=== PATIENT | female | born 1980 | race Caucasian/White ===

== ENCOUNTER 2016-02-26 12:23 | Emergency (ER) | payer SELFPAY ==
[2016-02-26] MEDS ORDERED: FAMOTIDINE 20 MG TABLET PO ONE (13:10)
[2016-02-26] MEDS ORDERED: PREDNISONE 20 MG TABLET PO ONE (13:10)
--- NOTE | 2016-02-26 13:12 | ER Document Report ---
ED Medical Screen (RME) - General Chief Complaint: Allergic Reaction Stated Complaint: POSSIBLE ALLERGIC REACTION Mode of Arrival: Ambulatory Information source: Patient Notes: Patient states that she has been taking Lamictal 50 mg twice a day for the past 2 weeks. Patient states today she instead took 100 mg once a day. Patient states she took this pill around 1050 and then shortly thereafter started to develop itching and hives. Patient does report taking 2 Benadryl tablets at 11 AM. Patient states initially her symptoms were worse, but they seemed to stabilize now. TRAVEL OUTSIDE OF THE [place] IN LAST 30 DAYS: No - Related Data Allergies/Adverse Reactions: morphine [Morphine] Adverse Reaction (Verified 11/14/12 17:57) memory loss Past Medical History - Past Medical History Cardiac Medical History: Reports: Hx Hypertension Endocrine Medical History: Reports: Hx Diabetes Mellitus Type 1, Hx Diabetes Mellitus Type 2 GI Medical History: Reports: Hx Gastroesophageal Reflux Disease Psychiatric Medical History: Reports: Hx Bipolar Disorder, Hx Depression Past Surgical History: Reports: Hx Cholecystectomy, Hx Tonsillectomy, Hx Tubal Ligation - Immunizations Hx Diphtheria, Pertussis, Tetanus Vaccination: Yes Physical Exam - Vital signs Vitals: Temp Pulse Resp BP Pulse Ox 98.1 F 124 H 20 119/83 96 02/26/16 12:58 02/26/16 12:58 02/26/16 12:58 02/26/16 12:58 02/26/16 12:58 - General General appearance: Appears well, Alert Notes: No angioedema, respirations clear bilaterally, patient mildly tachycardic 110 heart rate Course - Vital Signs Vital signs: Temp Pulse Resp BP Pulse Ox 98.1 F 124 H 20 119/83 96 02/26/16 12:58 02/26/16 12:58 02/26/16 12:58 02/26/16 12:58 02/26/16 12:58
[2016-02-26] MEDS ORDERED: HYDROCODONE/ACETAMINOPHEN 5-325 MG TABLET PO ONE (16:31)
[2016-02-26] MEDS ORDERED: METFORMIN HCL 500 MG TABLET PO ONE (17:52)
--- NOTE | 2016-02-26 19:02 | ER Document Report ---
ED General - General Chief Complaint: Allergic Reaction Stated Complaint: POSSIBLE ALLERGIC REACTION Mode of Arrival: Ambulatory Notes: She is presents to the emergency department with complaints of hives to her upper thighs after taking an increasing her Lamictal. She reports she's been taking 50 mg of Lamictal twice a day for 2 weeks. Today she took 100 mg of lamictal and noticed hives. She took 50 mg of Benadryl and was given steroids here. The hives are now gone. She denied shortness of breath or trouble breathing. She also reports she's had a sore throat for over a week with a cough. She denies fever vomiting diarrhea. She complains of left palm pain from itching. No hives noted or rash noted to her soles of her feet or palms. TRAVEL OUTSIDE OF THE [place] IN LAST 30 DAYS: No - HPI Onset: Other Onset/Duration: Sudden Quality of pain: Achy Severity: Moderate Pain Level: 3 Associated symptoms: Nonproductive cough, Sore throat Exacerbated by: Denies Relieved by: Denies Similar symptoms previously: Yes Recently seen / treated by doctor: No - Related Data Allergies/Adverse Reactions: morphine [Morphine] Adverse Reaction (Verified 11/14/12 17:57) memory loss Past Medical History - General Information source: Patient, Parent - Social History Smoking Status: Former Smoker - / Cigarette use (# per day): No Chew tobacco use (# tins/day): No Frequency of alcohol use: None Drug Abuse: None Lives with: Family Family History: Reviewed & Not Pertinent Patient has suicidal ideation: No Patient has homicidal ideation: No - Past Medical History Cardiac Medical History: Reports: Hx Hypertension Endocrine Medical History: Reports: Hx Diabetes Mellitus Type 2 GI Medical History: Reports: Hx Gastroesophageal Reflux Disease Psychiatric Medical History: Reports: Hx Bipolar Disorder, Hx Depression Past Surgical History: Reports: Hx Cholecystectomy, Hx Tonsillectomy, Hx Tubal Ligation - Immunizations Hx Diphtheria, Pertussis, Tetanus Vaccination: Yes Review of Systems - Review of Systems Notes: Review HPI for review of systems., All other systems negative Physical Exam - Vital signs Vitals: Temp Pulse Resp BP Pulse Ox 98.1 F 124 H 20 119/83 96 02/26/16 12:58 02/26/16 12:58 02/26/16 12:58 02/26/16 12:58 02/26/16 12:58 - Notes Notes: PHYSICAL EXAMINATION: GENERAL: Well-appearing and in no acute distress HEAD: Atraumatic, normocephalic. EYES: Pupils equal round and reactive to light, extraocular movements intact, sclera anicteric, conjunctiva are normal. ENT: nares patent, oropharynx clear without exudates. hoarse voice, Moist mucous membranes. good airway NECK: Normal range of motion, supple without lymphadenopathy LUNGS: CTAB and equal. No wheezes rales or rhonchi. HEART:Tachy and rhythm without murmurs ABDOMEN: Soft, no tenderness. No guarding, no rebound EXTREMITIES: Normal range of motion, no pitting edema. No cyanosis. NEUROLOGICAL: Cranial nerves grossly intact. Normal sensory/motor exams. PSYCH: Normal mood, normal affect. SKIN: Warm, Dry, normal turgor, faded irregular erythema to upper thighs Course - Vital Signs Vital signs: Temp Pulse Resp BP Pulse Ox 98.1 F 124 H 23 H 118/70 93 02/26/16 12:58 02/26/16 12:58 02/26/16 18:00 02/26/16 17:01 02/26/16 18:00 - Laboratory Laboratory results interpreted by me: 02/26/16 17:49 POC Glucose 135 H Discharge - Discharge Clinical Impression: Cough, Sore throat Allergic reaction Qualifiers: Encounter type: subsequent encounter Qualified Code(s): T78.40XD - Allergy, unspecified, subsequent encounter Condition: Stable Disposition: HOME, SELF-CARE Instructions: Acute Allergic Reaction ([facility]), Sore Throat ([facility]) Additional Instructions: *You have been evaluated for possible allergic reaction, cough, sore throat *Throat cultures pending you will be contacted should she need antibiotics *Increase fluid intake *Take only 50 mg of lamictal [facility] to discuss reaction of Hives to increase of lamictal *Monitor skin for return of hives *Take Benadryl as indicated *Take your tessalon perrles as prescribed for cough *Monitor your temperature, take Tylenol as indicated *Warm salt water gargles thrroat lozenges for your sore throat *Follow up with your primary care provider within one week for recheck of cold symptoms *Return to ED for worsening condition, changes, needs Referrals: [facility] [Primary Care Provider] - Follow up in 3-5 days
[2016-02-26 19:26] VITALS: BP 134/92
== END 2016-02-26 19:26 | disposition home or self-care (01) ==
LOC: ER 12:23
DX: J02.9 Acute pharyngitis, unspecified (principal); R05 Cough; T78.40XD Allergy, unspecified, subsequent encounter; I10 Essential (primary) hypertension; E11.9 Type 2 diabetes mellitus without complications; K21.9 Gastro-esophageal reflux disease without esophagitis; Z90.49 Acquired absence of other specified parts of digestive tract; Z98.51 Tubal ligation status; Z87.891 Personal history of nicotine dependence; Z88.6 Allergy status to analgesic agent
CPT/HCPCS: 99283; 87070; 87880; 82962; 71020; J7512

== ENCOUNTER → 2016-03-16 | Outpatient (CLI) | payer OTHER | LOC: OD 07:11 | DX: E11.9 Type 2 diabetes mellitus without complications (principal) | CPT/HCPCS: 36415; 83036 ==

== ENCOUNTER → 2016-04-03 | Outpatient (CLI) | payer OTHER | LOC: OD 07:41 | DX: M16.0 Bilateral primary osteoarthritis of hip (principal) | CPT/HCPCS: 73522 ==

== ENCOUNTER → 2016-06-25 | Outpatient (CLI) | payer OTHER | LOC: CCC 07:04 | DX: E11.9 Type 2 diabetes mellitus without complications (principal) | CPT/HCPCS: 36415; 83036 ==

== ENCOUNTER 2016-07-02 13:09 | Observation (INO) | payer SELFPAY ==
[2016-07-02] MEDS ORDERED: NORMAL SALINE 1000 ML 1,000 ML IV ONE (13:36)
--- NOTE | 2016-07-02 13:39 | ER Document Report ---
ED Medical Screen (RME) - General Chief Complaint: Syncope Stated Complaint: POSSIBLE SYNCOPE TRAVEL OUTSIDE OF THE [place] IN LAST 30 DAYS: No - HPI Notes: 07/02/16 13:39 Patient with multiple syncopal episodes since May 30 6 episodes a day. Mother states patient more likely has narcolepsy or cataplexy patient is seen by neurology had a head CT done last Saturday. 07/02/16 13:39 Denies any new symptoms - Related Data Allergies/Adverse Reactions: morphine [Morphine] Adverse Reaction (Verified 07/02/16 13:12) memory loss Past Medical History - Past Medical History Cardiac Medical History: Reports: Hx Hypertension Endocrine Medical History: Reports: Hx Diabetes Mellitus Type 1, Hx Diabetes Mellitus Type 2 Renal/ Medical History: Denies: Hx Peritoneal Dialysis GI Medical History: Reports: Hx Gastroesophageal Reflux Disease Psychiatric Medical History: Reports: Hx Bipolar Disorder, Hx Depression Past Surgical History: Reports: Hx Cholecystectomy, Hx Tonsillectomy, Hx Tubal Ligation - Immunizations Hx Diphtheria, Pertussis, Tetanus Vaccination: Yes Review of Systems - Review of Systems Constitutional: Other - Syncope Physical Exam - Vital signs Vitals: Temp Pulse Resp BP Pulse Ox 98.9 F 106 H 18 138/88 H 98 07/02/16 13:12 07/02/16 13:12 07/02/16 13:12 07/02/16 13:12 07/02/16 13:12 - Cardiovascular Rhythm: Regular Heart sounds: Normal auscultation Course - Re-evaluation Re-evalutation: 07/02/16 13:39 I have greeted and performed a rapid initial assessment of this patient. A comprehensive ED assessment and evaluation of the patient, analysis of test results and completion of the medical decision making process will be conducted by additional ED providers. - Vital Signs Vital signs: Temp Pulse Resp BP Pulse Ox 98.9 F 106 H 18 138/88 H 98 07/02/16 13:12 07/02/16 13:12 07/02/16 13:12 07/02/16 13:12 07/02/16 13:12
[2016-07-02 14:14] LABS: APPEARANCE,URINE CLEAR; BILIRUBIN,URINE NEGATIVE (NEGATIVE); GLUCOSE, URINE NEGATIVE (NEGATIVE); KETONES,URINE NEGATIVE (NEGATIVE); LEUKOCYTE ESTERASE,URINE TRACE (NEGATIVE); NITRITE,URINE NEGATIVE (NEGATIVE); PROTEIN,URINE NEGATIVE (NEGATIVE); URINE SPECIFIC GRAVITY 1.011; UROBILINOGEN,URINE NEGATIVE mg/dL (<2.0)
[2016-07-02 14:17] LABS: ABSOLUTE BASOPHILS # (AUTO) 0.1 10^3/uL (0.0-0.2); ABSOLUTE EOSINOPHILS # (AUTO) 0.5 10^3/uL (0.0-0.6); ABSOLUTE LYMPHOCYTES (AUTO) 4.2 10^3/uL (0.5-4.7); ABSOLUTE MONOCYTES (AUTO) 0.7 10^3/uL (0.1-1.4); ABSOLUTE NEUT (AUTO) 5.5 10^3/uL (1.7-8.2); BASOPHILS % (AUTO) 0.8 % (0-2); EOSINOPHILS % (AUTO) 4.8 % (0-6); HEMOGLOBIN 13.6 g/dL (12.0-15.5); HGB HCT DIFFERENCE 1.8; MEAN CORPUSCULAR HEMOGLOBIN 31.5 pg (27.0-33.4); MEAN CORPUSCULAR HGB CONC 34.7 g/dL (32.0-36.0); MEAN CORPUSCULAR VOLUME 91 fl (80-97); MONOCYTES % (AUTO) 6.2 % (3-13); RED BLOOD COUNT 4.31 10^6/uL (3.72-5.28); RED CELL DISTRIBUTION WIDTH 13.2 % (11.5-14.0); SEGMENTED NEUTROPHILS % (AUTO) 50.2 % (42-78)
[2016-07-02 14:28] LABS: URINE BARBITURATES SCREEN NEGATIVE; URINE METHADONE SCREEN NEGATIVE; URINE OPIATES LOW NEGATIVE; URINE PHENCYCLIDINE SCREEN NEGATIVE
[2016-07-02 14:30] LABS: ALANINE AMINOTRANSFERASE 78 U/L (9-52); ALBUMIN 4.5 g/dL (3.5-5.0); ALKALINE PHOSPHATASE 76 U/L (38-126); ANION GAP 12 (5-19); ASPARTATE AMINO TRANSFERASE 76 U/L (14-36); BILIRUBIN,DIRECT 0.4 mg/dL (0.0-0.4); BILIRUBIN,TOTAL 0.6 mg/dL (0.2-1.3); BLOOD UREA NITROGEN 16 mg/dL (7-20); CALCIUM 10.3 mg/dL (8.4-10.2); CARBON DIOXIDE 24 mmol/L (22-30); CHLORIDE 102 mmol/L (98-107); CREATINE KINASE 92 U/L (30-135); CREATININE RESULT 0.93 mg/dL (0.52-1.25); GLUCOSE 118 mg/dL (75-110); LIPASE 91.5 U/L (23-300); POTASSIUM 4.2 mmol/L (3.6-5.0); SODIUM 138.4 mmol/L (137-145); TOTAL PROTEIN 7.9 g/dL (6.3-8.2)
--- NOTE | 2016-07-02 14:40 | ER Document Report ---
ED General - General Chief Complaint: Syncope Stated Complaint: POSSIBLE SYNCOPE Time seen by provider: 14:38 Mode of Arrival: Ambulatory Information source: Patient Notes: This is a 35-year-old female with a history of bipolar affective disorder, diabetes, hypertension who presents to the emergency room with episodic syncopal episodes. Patient states that they are not associated with chest pain or shortness of breath or abdominal pain and they occur at any time and the recovery period is relatively quick. The whole episode lasts a few minutes. Patient's parents reports that this is occurred while the patient is been in a car so she no longer drives. The patient did have a witnessed syncopal episode in the emergency room during orthostatic vital signs. She did not sustain any injuries (I was there for the fall). There was no tonic-clonic activity or incontinence or tongue biting. TRAVEL OUTSIDE OF THE [place] IN LAST 30 DAYS: No - HPI Onset: Other - Several episodes over the last month Onset/Duration: Sudden Quality of pain: No pain Severity: None Pain Level: Denies Associated symptoms: None Exacerbated by: Denies Relieved by: Denies Similar symptoms previously: Yes Recently seen / treated by doctor: Yes - Related Data Allergies/Adverse Reactions: morphine [Morphine] Adverse Reaction (Verified 07/02/16 13:12) memory loss Past Medical History - General Information source: Patient - Social History Smoking Status: Never Smoker Cigarette use (# per day): No Chew tobacco use (# tins/day): No Frequency of alcohol use: None Drug Abuse: None Lives with: Family Family History: Reviewed & Not Pertinent Patient has suicidal ideation: No Patient has homicidal ideation: No - Past Medical History Cardiac Medical History: Reports: Hx Hypertension Endocrine Medical History: Reports: Hx Diabetes Mellitus Type 1, Hx Diabetes Mellitus Type 2 Renal/ Medical History: Denies: Hx Peritoneal Dialysis GI Medical History: Reports: Hx Gastroesophageal Reflux Disease Psychiatric Medical History: Reports: Hx Bipolar Disorder, Hx Depression Past Surgical History: Reports: Hx Cholecystectomy, Hx Tonsillectomy, Hx Tubal Ligation - Immunizations Hx Diphtheria, Pertussis, Tetanus Vaccination: Yes Review of Systems - Review of Systems Constitutional: denies: Chills, Fever EENT: No symptoms reported Cardiovascular: See HPI Respiratory: No symptoms reported Gastrointestinal: No symptoms reported Genitourinary: No symptoms reported Female Genitourinary: No symptoms reported Musculoskeletal: No symptoms reported Skin: No symptoms reported Hematologic/Lymphatic: No symptoms reported Neurological/Psychological: See HPI Physical Exam - Vital signs Vitals: Temp Pulse Resp BP Pulse Ox 98.9 F 106 H 18 138/88 H 98 07/02/16 13:12 07/02/16 13:12 07/02/16 13:12 07/02/16 13:12 07/02/16 13:12 Notes: Physical exam: GENERAL: 35-year-old female, alert and oriented 3, no acute distress HEAD: Atraumatic, normocephalic. EYES: Pupils equal round and reactive to light, extraocular movements intact, sclera anicteric, conjunctiva are normal. ENT: TMs normal, nares patent, oropharynx clear without exudates. Moist mucous membranes. NECK: Normal range of motion, supple without lymphadenopathy or JVD. LUNGS: Breath sounds clear to auscultation bilaterally and equal. No wheezes rales or rhonchi. HEART: Regular rate and rhythm without murmurs, rubs or gallops. ABDOMEN: Soft, normoactive bowel sounds. No tenderness to palpation. No guarding, no rebound. No masses appreciated. EXTREMITIES: Normal range of motion, no pitting or edema. No clubbing or cyanosis. NEUROLOGICAL: Cranial nerves II through XII grossly intact. Normal speech, normal gait. PSYCH: Normal mood, normal affect. SKIN: Warm, Dry, normal turgor, no rashes or lesions noted. Course - Vital Signs Vital signs: Temp Pulse Resp BP Pulse Ox 98.9 F 96 18 128/82 H 99 07/02/16 13:12 07/02/16 14:05 07/02/16 16:02 07/02/16 16:02 07/02/16 16:02 - Laboratory Result Diagrams: 07/02/16 13:45 07/02/16 13:45 Laboratory results interpreted by me: 07/02/16 07/02/16 07/02/16 13:45 13:45 13:45 WBC 11.0 H Glucose 118 H Calcium 10.3 H AST 76 H ALT 78 H Ur Leukocyte Esterase TRACE H Urine Ascorbic Acid 40 H - Diagnostic Test Radiology reviewed: Image reviewed, Reports reviewed - CTA shows no pulmonary emboli Discharge - Discharge Clinical Impression: syncope Condition: Stable Disposition: ADMITTED OBSERVATION Admitting Provider: Hospitalist Unit Admitted: Telemetry
[2016-07-02] MEDS ORDERED: NORMAL SALINE 1000 ML 1,000 ML IV PRN (15:22)
[2016-07-02] MEDS ORDERED: ALBUTEROL SULFATE 0.083% NEB 2.5 MG/3 ML AMPUL NEB PRN (17:22)
[2016-07-02] MEDS ORDERED: ACETAMINOPHEN 325 MG TABLET PO PRN (17:22)
[2016-07-02] MEDS ORDERED: DEXTROSE 40% GEL 15 GM TUBE PO PRN ×2 (17:30)
[2016-07-02] MEDS ORDERED: INSULIN LISPRO 100 UNIT/ML 3 ML VIAL SUBCUT PRN (17:30)
[2016-07-02] MEDS ORDERED: GLUCAGON,HUMAN RECOMB 1 MG INJ IM PRN (17:30)
[2016-07-02] MEDS ORDERED: DEXTROSE 50%-WATER 25 GM/50 ML DISP.SYRIN IV PRN ×2 (17:30)
--- NOTE | 2016-07-02 17:59 | PDOC H&P ---
History of Present Illness Admission Date/PCP: 07/02/16 16:51 [facility] Patient complains of: Blackout spells History of Present Illness: MAURY OCHOA is a 35 year old female reports that May 26 she began to have blacking out spells. These occur at random and have no provoking incidents. She feels fine and then will become unconscious and slumped to the floor. Patient has seen a neurologist Dr. Martínez at [facility] and she is scheduled for a sleep study to evaluate for possible narcolepsy and cataplexy in August. The patient denies any palpitations. Denies any chest pain or shortness of breath. She denies any dizziness when she stands up weekly. The patient does not have any tonic-clonic movements. The nursing staff was checking orthostatics in the emergency room and she had an episode. This was witnessed by the emergency physician and he reports that she was easily arousable and had no postictal type symptoms. There was no tonic-clonic movements. The patient does have bipolar disorder and is on antipsychotics. The patient's relates that she does have what sounds like restless leg syndrome and also does have episodes of sleepwalking. The patient is no longer driving because of these episodes. The patient has no family history of narcolepsy. She denies any visual or auditory hallucinations. Past Medical History Cardiac Medical History: Reports: Hypertension Pulmonary Medical History: Reports: None EENT Medical History: Reports: None Neurological Medical History: Reports: Other - Currently being worked up for possible narcolepsy Endocrine Medical History: Reports: Diabetes Mellitus Type 2 Renal/ Medical History: Reports: None Malignancy Medical History: Reports: None GI Medical History: Reports: Gastroesophageal Reflux Disease Musculoskeltal Medical History: Reports: None Psychiatric Medical History: Reports: Bipolar Disorder, Depression Traumatic Medical History: Reports: None Hematology: Reports: None Infectious Medical History: Reports: None Past Surgical History Past Surgical History: Reports: Cholecystectomy, Tonsillectomy, Tubal Ligation Social History Information Source: Patient Lives with: Family Smoking Status: Never Smoker Frequency of Alcohol Use: None Hx Recreational Drug Use: No Drugs: None Hx Prescription Drug Abuse: No - Advance Directive Resuscitation Status: Full Code Surrogate healthcare decision maker:: Family History Family History: Mother alive and has heart disease. Father is alive but health history unknown. Parental Family History Reviewed: Yes Children Family History Reviewed: No Sibling(s) Family History Reviewed.: No Medication/Allergy Home Medications: Acetaminophen/Diphenhydramine [Tylenol Pm Ex-Strength Caplet] 2 tab PO QPM 07/02 Benztropine Mesylate [Benztropine Mesylate 2 mg Tablet] 4 mg PO BID 07/02/16 Citalopram Hydrobromide [Celexa] 40 mg PO QAM 07/02/16 Gluc [place]/Chondro Campoverde A/Vit C/Mn [Glucosamine 1,500 Complex Cap] 2 each PO BID 10/11 Haloperidol 10 mg PO QHS 07/02/16 Iron 65 mg PO QHS 07/02/16 Lamotrigine 150 mg PO QAM 07/02/16 Lisinopril 5 mg PO QAM 07/02/16 Loratadine [Claritin 10 mg Tablet] 10 mg PO DAILY 07/02/16 Melatonin 10 mg PO QHS 07/02/16 Metformin HCl 1,000 mg PO BID 07/02/16 Multivitamin [Daily Multiple Vitamin] 1 each PO QAM 07/02/16 [place]-3/Dha/Epa/Fish Oil [Fish Oil 1,000 mg Softgel] 1 each PO BID 07/02/16 Omeprazole 20 mg PO QAM 07/02/16 Power C Vitamins 2 tab PO QAM 07/02/16 Allergies/Adverse Reactions: morphine [Morphine] Adverse Reaction (Verified 07/02/16 13:12) memory loss Review of Systems Constitutional: ABSENT: chills, fever(s), headache(s), weight gain, weight loss Eyes: ABSENT: visual disturbances Ears: ABSENT: hearing changes Cardiovascular: ABSENT: chest pain, dyspnea on exertion, edema, orthropnea, palpitations Respiratory: ABSENT: cough, hemoptysis Gastrointestinal: ABSENT: abdominal pain, constipation, diarrhea, hematemesis, hematochezia, nausea, vomiting Genitourinary: ABSENT: dysuria, hematuria Musculoskeletal: ABSENT: joint swelling Integumentary: ABSENT: rash, wounds Neurological: PRESENT: as per HPI Psychiatric: ABSENT: anxiety, depression Endocrine: ABSENT: cold intolerance, heat intolerance, polydipsia, polyuria Hematologic/Lymphatic: ABSENT: easy bleeding, easy bruising Physical Exam Vital Signs: Temp Pulse Resp BP Pulse Ox 98.9 F 96 18 135/90 H 98 07/02/16 13:12 07/02/16 14:05 07/02/16 17:02 07/02/16 17:02 07/02/16 17:02 General appearance: PRESENT: no acute distress, obese Head exam: PRESENT: atraumatic, normocephalic Eye exam: PRESENT: conjunctiva pink, EOMI, PERRLA. ABSENT: scleral icterus Ear exam: PRESENT: normal external ear exam Mouth exam: PRESENT: moist, tongue midline Neck exam: ABSENT: carotid bruit, JVD, lymphadenopathy, thyromegaly Respiratory exam: PRESENT: clear to auscultation sundeep. ABSENT: rales, rhonchi, wheezes Cardiovascular exam: PRESENT: RRR. ABSENT: diastolic murmur, rubs, systolic murmur Pulses: PRESENT: normal dorsalis pedis pul Vascular exam: PRESENT: normal capillary refill GI/Abdominal exam: PRESENT: normal bowel sounds, soft. ABSENT: distended, guarding, mass, organolmegaly, rebound, tenderness Rectal exam: PRESENT: deferred Extremities exam: ABSENT: calf tenderness, clubbing, pedal edema Neurological exam: PRESENT: alert, awake, oriented to person, oriented to place , oriented to time, oriented to situation, CN II-XII grossly intact. ABSENT: motor sensory deficit Psychiatric exam: PRESENT: appropriate affect, normal mood Skin exam: PRESENT: dry, intact, warm. ABSENT: cyanosis, rash Results Impressions: Chest/Abdomen CTA 07/02/16 14:38 IMPRESSION: No CT angio evidence of thoracic aortic dissection or acute pulmonary emboli. No Focal pulmonary findings Assessment & Plan - Diagnosis (1) Syncope Is this a current diagnosis for this admission?: YesPlan: Etiology of the syncope is not clear. She is currently undergoing workup by Dr. Martínez of neurology. She has a sleep study scheduled for August. The patient does not have orthostatic hypotension. She does not have any type of tonic-clonic movements which makes the possibility of seizures highly unlikely. We will monitor overnight to make certain she is not having any cardiac arrhythmias and with for any further workup to her neurologist and given the symptomology most likely represents narcolepsy with cataplexy. (2) Hypertension Is this a current diagnosis for this admission?: YesPlan: Continue with lisinopril (3) Diabetes mellitus Is this a current diagnosis for this admission?: YesPlan: We'll cover with sliding scale insulin. (4) Gastroesophageal reflux disease Is this a current diagnosis for this admission?: Yes (5) Bipolar disorder Is this a current diagnosis for this admission?: YesPlan: Continue with the Haldol and Cogentin. She also is on Celexa. (6) Depression Is this a current diagnosis for this admission?: YesPlan: Continue with Celexa - Time Time Spent: 50 to 70 Minutes - Inpatient Certification Medical Necessity: Need Close Monitoring Due to Risk of Patient Decompensation - Plan Summary Plan Summary: Patient will be monitored on telemetry and if her rhythm is unremarkable discharge on the morning.
[2016-07-02] MEDS ORDERED: [UNRECOGNIZED DRUG - OTHER] PO SCH (18:00)
[2016-07-02] MEDS ORDERED: BENZTROPINE MESYLATE PO SCH (18:00)
[2016-07-02] MEDS ORDERED: (PENDING PHARMACY ID) (Omega-3/Dha/Epa/Fish Oil [Fish Oil 1,000 Mg Softgel] 1 EACH) PO SCH (18:00)
[2016-07-02] MEDS: OMEGA-3 ACID ETHYL ESTERS 1 GM CAPSULE PO SCH (18:45)
[2016-07-02] MEDS: BENZTROPINE MESYLATE 1 MG TABLET PO SCH (21:15)
--- NOTE | 2016-07-02 21:36 | EKG REPORT ---
SEVERITY:- NORMAL ECG - SINUS RHYTHM : Confirmed by: Libra Nash 02-Jul-2016 21:35:30
[2016-07-02] MEDS ORDERED: FERROUS SULFATE 325 MG TABLET PO SCH (22:00)
[2016-07-02] MEDS ORDERED: (PENDING PHARMACY ID) (Iron [Iron] 65 MG) PO SCH (22:00)
[2016-07-02] MEDS ORDERED: (PENDING PHARMACY ID) (Melatonin [Melatonin] 10 MG) PO SCH (22:00)
[2016-07-02] MEDS ORDERED: HALOPERIDOL 5 MG TABLET PO SCH (22:00)
[2016-07-03] MEDS ORDERED: CITALOPRAM HYDROBROMIDE 20 MG TABLET PO SCH (08:00)
[2016-07-03] MEDS ORDERED: MULTIVITAMIN TABLET PO SCH (08:00)
[2016-07-03] MEDS ORDERED: LISINOPRIL 5 MG TABLET PO SCH (08:00)
[2016-07-03] MEDS ORDERED: LAMOTRIGINE 100 MG TABLET PO SCH (08:00)
[2016-07-03] MEDS ORDERED: LAMOTRIGINE 150 MG PO SCH (08:00)
[2016-07-03] MEDS ORDERED: LORATADINE 10 MG TABLET PO SCH (10:00)
[2016-07-03 10:35] VITALS: BP 136/76
[2016-07-03] MEDS: BENZTROPINE MESYLATE 1 MG TABLET PO SCH (11:03)
[2016-07-03] MEDS: OMEGA-3 ACID ETHYL ESTERS 1 GM CAPSULE PO SCH (11:03)
--- NOTE | 2016-07-03 11:30 | PDOC DISCHARGE SUMMARY ---
General - Admit/Disc Date/PCP Admission Date/Primary Care Provider: 07/02/16 16:51 [facility] Discharge Date: 07/03/16 - Discharge Diagnosis (1) Syncope Is this a current diagnosis for this admission?: YesSummary: Unremarkable telemetry overnight. 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 (2) Hypertension Is this a current diagnosis for this admission?: Yes (3) Diabetes mellitus Is this a current diagnosis for this admission?: Yes (4) Gastroesophageal reflux disease Is this a current diagnosis for this admission?: Yes (5) Bipolar disorder Is this a current diagnosis for this admission?: Yes (6) Depression Is this a current diagnosis for this admission?: Yes - Additional Information Resuscitation Status: Full Code Discharge Diet: Regular Discharge Activity: Activity As Tolerated Home Medications: Acetaminophen/Diphenhydramine [Tylenol Pm Ex-Strength Caplet] 2 tab PO QPM 07/02 Benztropine Mesylate [Benztropine Mesylate 2 mg Tablet] 4 mg PO BID 07/02/16 Citalopram Hydrobromide [Celexa] 40 mg PO QAM 07/02/16 Gluc Campoverde/Chondro Campoverde A/Vit C/Mn [Glucosamine 1,500 Complex Cap] 2 each PO BID 10/11 Haloperidol 10 mg PO QHS 07/02/16 Iron 65 mg PO QHS 07/02/16 Lamotrigine 150 mg PO QAM 07/02/16 Lisinopril 5 mg PO QAM 07/02/16 Loratadine [Claritin 10 mg Tablet] 10 mg PO QAM 07/02/16 Melatonin 10 mg PO QHS 07/02/16 Metformin HCl 1,000 mg PO BID 07/02/16 Multivitamin [Daily Multiple Vitamin] 2 each PO QAM 07/02/16 Spickard-3/Dha/Epa/Fish Oil [Fish Oil 1,000 mg Softgel] 3 each PO BID 07/02/16 Omeprazole 20 mg PO QAM 07/02/16 Power C Vitamins 2 tab PO QAM 07/02/16 History of Present Illness History of Present Illness: MAURY OCHOA is a 35 year old female reports that May 26 she began to have blacking out spells. These occur at random and have no provoking incidents. She feels fine and then will become unconscious and slumped to the floor. Patient has seen a neurologist Dr. Martínez at [place] and she is scheduled for a sleep study to evaluate for possible narcolepsy and cataplexy in August. The patient denies any palpitations. Denies any chest pain or shortness of breath. She denies any dizziness when she stands up weekly. The patient does not have any tonic-clonic movements. The nursing staff was checking orthostatics in the emergency room and she had an episode. This was witnessed by the emergency physician and he reports that she was easily arousable and had no postictal type symptoms. There was no tonic-clonic movements. The patient does have bipolar disorder and is on antipsychotics. The patient's relates that she does have what sounds like restless leg syndrome and also does have episodes of sleepwalking. The patient is no longer driving because of these episodes. The patient has no family history of narcolepsy. She denies any visual or auditory hallucinations. Hospital Course Hospital Course: 35-year-old female who is currently being worked up by Dr. Foster of neurology for syncopal episodes. She presented with continued syncopal episodes was admitted for overnight observation of her cardiac telemetry. She had no further episodes of syncope. She had no cardiac arrhythmias. The patient by her description has what sounds like narcolepsy with cataplexy. She has a sleep study scheduled for August. Will defer any further workup to her neurologist Dr. Martínez. No changes were made in her medications. Physical Exam Vital Signs: Temp Pulse Resp BP Pulse Ox 97.5 F 72 18 136/76 H 96 07/03/16 10:34 07/03/16 10:34 07/03/16 10:34 07/03/16 10:34 07/03/16 10:34 Intake & Output 07/02/16 07/03/16 07/04/16 06:59 06:59 06:59 Intake Total 2805 Balance 2805 Weight 111.2 kg General appearance: PRESENT: no acute distress, well-developed, well-nourished Head exam: PRESENT: atraumatic, normocephalic Eye exam: PRESENT: conjunctiva pink, EOMI, PERRLA. ABSENT: scleral icterus Ear exam: PRESENT: normal external ear exam Mouth exam: PRESENT: moist, tongue midline Neck exam: ABSENT: JVD Respiratory exam: PRESENT: clear to auscultation sundeep. ABSENT: rales, rhonchi, wheezes Cardiovascular exam: PRESENT: RRR. ABSENT: diastolic murmur, rubs, systolic murmur GI/Abdominal exam: PRESENT: normal bowel sounds, soft. ABSENT: distended, guarding, mass, organolmegaly, rebound, tenderness Extremities exam: ABSENT: calf tenderness, clubbing, pedal edema Neurological exam: PRESENT: alert, awake, oriented to person, oriented to place , oriented to time, oriented to situation, CN II-XII grossly intact. ABSENT: motor sensory deficit Psychiatric exam: PRESENT: appropriate affect Skin exam: PRESENT: dry, intact, warm. ABSENT: cyanosis, rash Results Impressions: Chest/Abdomen CTA 07/02/16 14:38 IMPRESSION: No CT angio evidence of thoracic aortic dissection or acute pulmonary emboli. No Focal pulmonary findings Qualifiers PATEINT BEING DISCHARGED WITH ANY OF THE FOLLOWING DIAGNOSIS?: No Plan Discharge Plan: Patient is discharged home in stable condition. She will follow up in 2 weeks with her primary care and keep her next scheduled appointment with her neurologist Dr. Martínez. Time Spent: Less than 30 Minutes
== END 2016-07-03 11:13 | disposition home or self-care (01) ==
LOC: ER 13:09 → EH 16:51 → INTOOBSV 17:22 → OBSVTOIN 17:22 → 4N 18:13
PROVIDERS: ADMIT Internal Medicine; ATTEND Internal Medicine
DX: R55 Syncope and collapse (principal); I10 Essential (primary) hypertension; E11.9 Type 2 diabetes mellitus without complications; K21.9 Gastro-esophageal reflux disease without esophagitis; F31.9 Bipolar disorder, unspecified; F51.3 Sleepwalking [somnambulism]; Z79.899 Other long term (current) drug therapy; Z79.84 Long term (current) use of oral hypoglycemic drugs; Z90.49 Acquired absence of other specified parts of digestive tract; Z98.51 Tubal ligation status
CPT/HCPCS: 93005; 99285; 96360; 96361; 36415; 82553; 82962 ×2; 82550; 83690; 84703; 85025; 80053; 81001; 84484; 80307; 71275; 93010; G0378 ×3; J1815; J3490 ×3; J7030

== ENCOUNTER → 2016-07-17 | Outpatient (CLI) | payer OTHER ==
[2016-07-17 08:43] LABS: ALANINE AMINOTRANSFERASE 75 U/L (9-52); ALBUMIN 4.2 g/dL (3.5-5.0); ALKALINE PHOSPHATASE 70 U/L (38-126); ANION GAP 11 (5-19); ASPARTATE AMINO TRANSFERASE 70 U/L (14-36); BILIRUBIN,DIRECT 0.4 mg/dL (0.0-0.4); BILIRUBIN,TOTAL 0.6 mg/dL (0.2-1.3); BLOOD UREA NITROGEN 16 mg/dL (7-20); CALCIUM 9.9 mg/dL (8.4-10.2); CARBON DIOXIDE 26 mmol/L (22-30); CHLORIDE 103 mmol/L (98-107); GLUCOSE 144 mg/dL (75-110); POTASSIUM 4.3 mmol/L (3.6-5.0); SODIUM 139.6 mmol/L (137-145); TOTAL PROTEIN 7.6 g/dL (6.3-8.2)
== END ==
LOC: CCC 07:05
DX: R55 Syncope and collapse (principal); E83.52 Hypercalcemia
CPT/HCPCS: 36415; 80053

== ENCOUNTER → 2016-08-06 | Outpatient (CLI) | payer OTHER ==
[2016-08-06 08:57] LABS: ALANINE AMINOTRANSFERASE 70 U/L (9-52); ALBUMIN 4.3 g/dL (3.5-5.0); ALKALINE PHOSPHATASE 107 U/L (38-126); ANION GAP 12 (5-19); ASPARTATE AMINO TRANSFERASE 60 U/L (14-36); BILIRUBIN,DIRECT 0.3 mg/dL (0.0-0.4); BILIRUBIN,TOTAL 0.4 mg/dL (0.2-1.3); BLOOD UREA NITROGEN 20 mg/dL (7-20); CALCIUM 10.3 mg/dL (8.4-10.2); CARBON DIOXIDE 24 mmol/L (22-30); CHLORIDE 103 mmol/L (98-107); CREATININE RESULT 0.92 mg/dL (0.52-1.25); GLUCOSE 137 mg/dL (75-110); POTASSIUM 4.4 mmol/L (3.6-5.0); SODIUM 139.2 mmol/L (137-145); TOTAL PROTEIN 7.6 g/dL (6.3-8.2)
== END ==
LOC: CCC 07:29
DX: R55 Syncope and collapse (principal); E83.52 Hypercalcemia
CPT/HCPCS: 36415; 80053

== ENCOUNTER → 2016-08-23 | Outpatient (CLI) | payer OTHER ==
--- NOTE | 2016-08-23 12:28 | RADIOLOGY REPORT (SQ) ---
EXAM DESCRIPTION: U/S ABDOMEN COMPLETE W/O DOP COMPLETED DATE/TIME: 08/23/2016 11:50 am REASON FOR STUDY: ABN LFT (R94.5), FATTY (CHANGE OF) LIVER NEC (K76.0) R94.5 ABNORMAL RESULTS OF LI YOANA FUNCTION STUDIES COMPARISON: None. TECHNIQUE: Dynamic and static grayscale images acquired of the abdomen and recorded on PACS. Additio nal selected color Doppler and spectral images recorded. LIMITATIONS: None. FINDINGS: PANCREAS: No masses. Visualized pancreatic duct normal caliber. LIVER: Liver demonstrates increased echogenicity and coarsened echotexture consistent with fatty depo sition. No focal lesions. No hepatomegaly. LIVER VASCULATURE: Normal directional flow of the main portal vein and hepatic veins. GALLBLADDER: Surgically absent. ULTRASOUND-DETECTED ROSA'S SIGN: Negative. INTRAHEPATIC DUCTS AND COMMON DUCT: CBD and intrahepatic ducts normal caliber. No filling defects. INFERIOR VENA CAVA: Normal flow. AORTA: No aneurysm. RIGHT KIDNEY: Normal size. Normal echogenicity. No solid or suspicious masses. No hydronephros is. No calcifications. LEFT KIDNEY: Normal size. Normal echogenicity. No solid or suspicious masses. No hydronephrosi s. No calcifications. SPLEEN: Normal size. No solid masses. PERITONEAL AND PLEURAL SPACES: No ascites or effusions. OTHER: No other significant finding. IMPRESSION: 1. Hepatic steatosis. No focal liver lesions. 2. Prior cholecystectomy. No biliary dilatation. 3. Otherwise unremarkable abdominal ultrasound. TECHNICAL DOCUMENTATION: JOB ID: [id number] [email or web address]- All Rights Reserved
== END ==
LOC: RAD 10:07
DX: R94.5 Abnormal results of liver function studies (principal); K76.0 Fatty (change of) liver, not elsewhere classified
CPT/HCPCS: 76700

== ENCOUNTER 2016-08-25 14:45 | Emergency (ER) | payer OTHER ==
--- NOTE | 2016-08-25 15:08 | ER Document Report ---
ED Medical Screen (RME) - General Chief Complaint: Blood in Catheter Stated Complaint: BLOOD IN URINE Time Seen by Provider: 08/25/16 15:05 Notes: Patient says that she was having trouble going to urinate earlier today and then this afternoon noted some blood in her urine. She was fine yesterday. Denies any nausea or vomiting. Denies any fever. PMH: Cholecystectomy, BTL. TRAVEL OUTSIDE OF THE [place] IN LAST 30 DAYS: No - Related Data Allergies/Adverse Reactions: morphine [Morphine] Adverse Reaction (Verified 08/25/16 14:50) memory loss Past Medical History - Past Medical History Cardiac Medical History: Reports: Hx Hypertension Endocrine Medical History: Reports: Hx Diabetes Mellitus Type 1, Hx Diabetes Mellitus Type 2 Renal/ Medical History: Denies: Hx Peritoneal Dialysis GI Medical History: Reports: Hx Gastroesophageal Reflux Disease Psychiatric Medical History: Reports: Hx Bipolar Disorder, Hx Depression Past Surgical History: Reports: Hx Cholecystectomy, Hx Tonsillectomy, Hx Tubal Ligation - Immunizations Hx Diphtheria, Pertussis, Tetanus Vaccination: Yes Physical Exam - Vital signs Vitals: Temp Pulse Resp BP Pulse Ox 98.3 F 95 18 128/74 H 97 08/25/16 14:50 08/25/16 14:50 08/25/16 14:50 08/25/16 14:50 08/25/16 14:50 Course - Vital Signs Vital signs: Temp Pulse Resp BP Pulse Ox 98.3 F 95 18 128/74 H 97 08/25/16 14:50 08/25/16 14:50 08/25/16 14:50 08/25/16 14:50 08/25/16 14:50 - Laboratory Laboratory results interpreted by me: 08/25/16 15:25 Urine Nitrite POSITIVE H Urine Urobilinogen 4.0 H Ur Leukocyte Esterase MODERATE H Urine Ascorbic Acid 40 H
[2016-08-25 15:52] LABS: APPEARANCE,URINE CLOUDY; BILIRUBIN,URINE NEGATIVE (NEGATIVE); GLUCOSE, URINE NEGATIVE (NEGATIVE); KETONES,URINE NEGATIVE (NEGATIVE); LEUKOCYTE ESTERASE,URINE MODERATE (NEGATIVE); NITRITE,URINE POSITIVE (NEGATIVE); PROTEIN,URINE NEGATIVE (NEGATIVE); URINE SPECIFIC GRAVITY 1.006
[2016-08-25] MEDS ORDERED: NITROFURANTOIN MONOHYD/M-CRYST 100 MG CAPSULE PO ONE (16:13)
--- NOTE | 2016-08-25 16:17 | ER Document Report ---
ED GI/ - General Stated Complaint: BLOOD IN URINE Time Seen by Provider: 08/25/16 15:05 Notes: Patient says that she was having trouble going to urinate earlier today and then this afternoon noted some blood in her urine. She was fine yesterday. Denies any nausea or vomiting. Denies any fever. [place] fine yesterday. PMH: Cholecystectomy, BTL TRAVEL OUTSIDE OF THE [place] IN LAST 30 DAYS: No - Related Data Allergies/Adverse Reactions: morphine [Morphine] Adverse Reaction (Verified 08/25/16 14:50) memory loss Past Medical History - Social History Smoking Status: Former Smoker - Stop smoking 2 weeks ago. Family History: Reviewed & Not Pertinent Patient has suicidal ideation: No Patient has homicidal ideation: No - Past Medical History Cardiac Medical History: Reports: Hx Hypertension Endocrine Medical History: Reports: Hx Diabetes Mellitus Type 2 Renal/ Medical History: Denies: Hx Peritoneal Dialysis GI Medical History: Reports: Hx Gastroesophageal Reflux Disease Psychiatric Medical History: Reports: Hx Bipolar Disorder, Hx Depression, Other - Insomnia Past Surgical History: Reports: Hx Cholecystectomy, Hx Tonsillectomy, Hx Tubal Ligation - Immunizations Hx Diphtheria, Pertussis, Tetanus Vaccination: Yes Review of Systems - Review of Systems Notes: REVIEW OF SYSTEMS: CONSTITUTIONAL : Denies fever. EENT: Denies eye, ear, nose or mouth or throat pain or other symptoms. CARDIOVASCULAR: Denies chest pain. RESPIRATORY: Denies cough, chest congestion, or shortness of breath. GASTROINTESTINAL: Denies abdominal pain or nausea, vomiting, or diarrhea. GENITOURINARY: See HPI. MUSCULOSKELETAL: Denies back or neck pain. Denies joint pain or swelling. SKIN: Denies rash or skin lesions. NEUROLOGICAL: Denies LOC or altered mental status. Denies headache. Denies sensory loss or motor deficits. ALL OTHER SYSTEMS REVIEWED AND NEGATIVE. Physical Exam - Vital signs Vitals: Temp Pulse Resp BP Pulse Ox 98.3 F 95 18 128/74 H 97 08/25/16 14:50 08/25/16 14:50 08/25/16 14:50 08/25/16 14:50 08/25/16 14:50 Interpretation: Normal - Notes Notes: PHYSICAL EXAMINATION: GENERAL: Well-appearing, in no acute distress. Vital signs essentially normal. HEAD: Atraumatic, normocephalic. NECK: Normal range of motion, supple. LUNGS: Breath sounds clear and equal bilaterally. HEART: Regular rate and rhythm without murmurs. ABDOMEN: Soft, nontender. No guarding or rebound. No masses felt. BACK: No tenderness throughout entire back. EXTREMITIES: Normal range of motion without pain. NEUROLOGICAL: Normal speech, normal gait. Normal sensory, motor, and reflex exams. Awake, alert, and oriented x3. Cranial nerves normal. PSYCH: Normal mood, normal affect. SKIN: Warm, dry, no rashes. Course - Re-evaluation Re-evalutation: 08/25/16 21:19 Urinalysis definitely looks like a UTI. - Vital Signs Vital signs: Temp Pulse Resp BP Pulse Ox 98.3 F 96 18 126/76 H 99 08/25/16 16:19 08/25/16 16:19 08/25/16 16:19 08/25/16 16:19 08/25/16 16:19 - Laboratory Laboratory results interpreted by me: 08/25/16 15:25 Urine Nitrite POSITIVE H Urine Urobilinogen 4.0 H Ur Leukocyte Esterase MODERATE H Urine Ascorbic Acid 40 H Discharge - Discharge Clinical Impression: UTI (urinary tract infection) Qualifiers: Urinary tract infection type: site unspecified Hematuria presence: with hematuria Qualified Code(s): N39.0 - Urinary tract infection, site not specified Condition: Stable Disposition: HOME, SELF-CARE Additional Instructions: URINARY TRACT INFECTION: Your evaluation indicates that you have a urinary tract infection. This is due to germs growing in the bladder. This is a common problem. This infection usually responds quickly to antibiotics. Your antibiotic should be taken exactly as prescribed. Drink plenty of fluids -- three to four quarts a day. Occasionally, a bladder anesthetic will be prescribed to help stop the feeling of urgency until the antibiotic has a chance to clear the infection. This may cause your urine to be dark orange. Certain urine infections require a culture. If the doctor obtained a culture, the results will be back in two days. You should call to see if a change in treatment is needed. A repeat urinalysis after you finish treatment is often recommended. The physician will let you know if further testing is required. Call the doctor if you develop fever, chills, flank pain, inability to urinate, or blood in the urine. ANTIBIOTIC THERAPY: You have been given an antibiotic prescription. It's important that you take all the medication, unless instructed otherwise by your physician. Failure to complete the entire course can result in relapse of your condition. Common side effects of antibiotics include nausea, intestinal cramping, or diarrhea. Women may develop vaginal yeast infections, and babies can get yeast (thrush) in the mouth following the use of antibiotics. Contact your physician if you develop significant side effects from this medication. Allergy to this antibiotic can result in hives, wheezing, faintness, or itching. If symptoms of allergy occur, stop the medication and call the doctor. NITROFURANTOIN (MACRODANTIN, MACROBID): You have received a prescription for nitrofurantoin (Macrodantin). This antibiotic is used for urinary tract infections. Women who are or nursing should notify the physician before taking this medicine. If you have ever had a problem caused by this medication in the past, be sure the physician is aware of it. Common side effects of this medicine include nausea, vomiting, or decreased appetite. Notify your physician if these side effects become severe. Immediately stop this medicine and call the physician if you develop cough , shortness of breath, chest pain, weakness, jaundice (yellow color of the skin and whites of the eyes), or a skin rash. FOLLOW-UP CARE: If you have been referred to a physician for follow-up care, call the physician s office for an appointment as you were instructed or within the next two days. If you experience worsening or a significant change in your symptoms, notify the physician immediately or return to the Emergency Department at any time for re-evaluation. Drink plenty of fluids. Take the medication until completed and throw away the empty bottle. 3 things to return for: High Fever Pain that is not controlled with Tylenol or Motrin Vomiting and cannot keep medications down. Prescriptions: Nitrofurantoin/Nitrofuran Mac [Macrobid 100 mg Capsule] 1 tab PO BID #10 capsule Referrals: [facility] [Provider Group] - Follow up as needed
[2016-08-25 16:20] VITALS: BP 126/76
== END 2016-08-25 16:25 | disposition home or self-care (01) ==
LOC: ER 14:45
DX: N39.0 Urinary tract infection, site not specified (principal); R31.9 Hematuria, unspecified; I10 Essential (primary) hypertension; E11.9 Type 2 diabetes mellitus without complications; Z88.6 Allergy status to analgesic agent; Z87.891 Personal history of nicotine dependence; Z90.49 Acquired absence of other specified parts of digestive tract; Z98.51 Tubal ligation status
CPT/HCPCS: 99283; 81025; 81001; J8499

== ENCOUNTER → 2016-09-12 | Outpatient (CLI) | payer OTHER ==
[2016-09-13 08:40] LABS: HEPATITIS A AB TOTAL Negative (Negative)
== END ==
LOC: CCC 07:14
DX: R94.5 Abnormal results of liver function studies (principal)
CPT/HCPCS: 36415; 82977; 86317; 86708; 86709; 87340

== ENCOUNTER 2016-09-17 13:40 | Emergency (ER) | payer OTHER ==
[2016-09-17] MEDS ORDERED: IBUPROFEN 800 MG TABLET PO ONE (14:15)
--- NOTE | 2016-09-17 14:16 | ER Document Report ---
HPI - HPI Patient complains to provider of: Twisted left ankle and hit right knee Onset: Just prior to arrival Onset/Duration: Sudden Context: 35-year-old female injured her left ankle and right knee after twisting her left foot and ankle falling off a curb prior to arrival. She came in by ambulance. Tetanus is current. Associated Symptoms: None Exacerbated by: Walking Relieved by: Denies - ROS ROS below otherwise negative: Yes Systems Reviewed and Negative: Yes All other systems reviewed and negative - CARDIOVASCULAR Cardiovascular: DENIES: Chest pain - REPRODUCTIVE Reproductive: DENIES: : Past Medical History - General Information source: Patient - Social History Smoking Status: Former Smoker Frequency of alcohol use: None Drug Abuse: None Lives with: Parents Family History: Reviewed & Not Pertinent - Past Medical History Cardiac Medical History: Reports: Hx Hypertension Endocrine Medical History: Reports: Hx Diabetes Mellitus Type 2 Renal/ Medical History: Denies: Hx Peritoneal Dialysis GI Medical History: Reports: Hx Gastroesophageal Reflux Disease Psychiatric Medical History: Reports: Hx Bipolar Disorder, Hx Depression Past Surgical History: Reports: Hx Cholecystectomy, Hx Tonsillectomy, Hx Tubal Ligation - Immunizations Hx Diphtheria, Pertussis, Tetanus Vaccination: Yes Vertical Provider Document - CONSTITUTIONAL Agree With Documented VS: Yes Exam Limitations: No Limitations - INFECTION CONTROL TRAVEL OUTSIDE OF THE [place] IN LAST 30 DAYS: No - HEENT HEENT: Normocephalic - NECK Neck: Supple - RESPIRATORY O2 Sat by Pulse Oximetry: 95 - MUSCULOSKELETAL/EXTREMETIES Musculoskeletal/Extremeties: MAEW, FROM, Tender, Eccymosis Notes: superficial abrasion, tender lateral left malleolus and proximal foot, 2 + DP, FROM, n/v intact. right anterior knee with superficial abrasion, FROM, patellar tendon intact. - NEURO Level of Consciousness: Alert Motor/Sensory: No Motor Deficit, No Sensory Deficit - DERM Integumentary: Warm, Dry Notes: see above Course - Re-evaluation Re-evalutation: 09/17/16 15:48 X-rays are negative per radiologist. The patient fell in the bathroom on her buttocks and she states that nothing is hurt worse than when she came in. Patient does not want Motrin prescription 09/17/16 16:00 - Vital Signs Vital signs: Temp Pulse Resp BP Pulse Ox 98.6 F 102 H 20 120/79 95 09/17/16 14:10 09/17/16 14:10 09/17/16 14:10 09/17/16 14:10 09/17/16 14:10 Procedures - Immobilization Wrist Time completed: 16:25 Pre-Proc Neuro Vasc Exam: Normal Immobilizer type: Cock-up - bilateral wrists, Other - right ankle posterior splint Performed by: RN Post-Proc Neuro Vasc Exam: Normal Alignment checked and good: Yes Discharge - Discharge Clinical Impression: left ankle and foot sprain Abrasion of right knee Qualifiers: Encounter type: initial encounter Qualified Code(s): S80.211A - Abrasion, right knee, initial encounter Condition: Good Disposition: HOME, SELF-CARE Instructions: Sprained Ankle ([facility]), Use of Crutches ([facility]), Ice & Elevation ([facility] ), Temporary Splint ([facility]), Splint Precautions ([facility]), Abrasions ([facility]), Antibiotic Ointment Protection ([facility]) Additional Instructions: elevate use crutches this week spliht this week copy of negative radiology reports to er any concerns see orthopedic doctor if pain persists Please complete the patient satisfaction survey if you get one, and return it.. If you do not receive a survey, then you can go to the [facility] website, [email or web address] and place your comments about your very good care. Thank you very much. It was a pleasure being your medical provider today. Referrals: TAWANDA SAGASTUME MD [ACTIVE STAFF] - Follow up as needed
--- NOTE | 2016-09-17 15:23 | RADIOLOGY REPORT (SQ) ---
EXAM DESCRIPTION: ANKLE LEFT COMPLETE COMPLETED DATE/TIME: 09/17/2016 3:08 pm REASON FOR STUDY: inversion injury COMPARISON: None. NUMBER OF VIEWS: Three views. TECHNIQUE: AP, lateral, and oblique radiographic images acquired of the left ankle. LIMITATIONS: None. FINDINGS: MINERALIZATION: Normal. BONES: No acute fracture or dislocation. No worrisome bone lesions. JOINTS: No effusions. SOFT TISSUES: No soft tissue swelling. No foreign body. OTHER: No other significant finding. IMPRESSION: NEGATIVE STUDY OF THE LEFT ANKLE. NO RADIOGRAPHIC EVIDENCE OF ACUTE INJURY. TECHNICAL DOCUMENTATION: JOB ID: [id number] [employer]- All Rights Reserved
--- NOTE | 2016-09-17 15:24 | RADIOLOGY REPORT (SQ) ---
EXAM DESCRIPTION: FOOT LEFT COMPLETE COMPLETED DATE/TIME: 09/17/2016 3:08 pm REASON FOR STUDY: inversion injury COMPARISON: 09/11/2013 NUMBER OF VIEWS: Three views. TECHNIQUE: AP, lateral and oblique radiographic images acquired of the left foot. LIMITATIONS: None. FINDINGS: MINERALIZATION: Normal. BONES: No acute fracture or dislocation. No worrisome bone lesions. JOINTS: No effusions. SOFT TISSUES: No soft tissue swelling. No foreign body. OTHER: No other significant finding. IMPRESSION: NEGATIVE STUDY OF THE LEFT FOOT. NO RADIOGRAPHIC EVIDENCE OF ACUTE INJURY. TECHNICAL DOCUMENTATION: JOB ID: [id number] [employer]- All Rights Reserved
[2016-09-17 16:38] VITALS: BP 120/80
== END 2016-09-17 16:40 | disposition home or self-care (01) ==
LOC: ER 13:40
DX: S93.402A Sprain of unspecified ligament of left ankle, initial encounter (principal); S93.602A Unspecified sprain of left foot, initial encounter; S80.211A Abrasion, right knee, initial encounter; W10.1XXA Fall (on)(from) sidewalk curb, initial encounter; I10 Essential (primary) hypertension; E11.9 Type 2 diabetes mellitus without complications; Z87.891 Personal history of nicotine dependence
CPT/HCPCS: 99283

== ENCOUNTER → 2016-09-20 | Outpatient (CLI) | payer OTHER | LOC: CCC 12:40 | DX: E11.8 Type 2 diabetes mellitus with unspecified complications (principal) | CPT/HCPCS: 36415; 83036 ==

== ENCOUNTER → 2016-09-21 | Outpatient (CLI) | payer OTHER | LOC: CCC 14:20 | DX: R94.5 Abnormal results of liver function studies (principal) | CPT/HCPCS: 36415 ==

== ENCOUNTER 2016-10-18 07:09 | Emergency (ER) | payer OTHER ==
[2016-10-18 07:32] VITALS: BP 139/86
[2016-10-18] MEDS ORDERED: LIDOCAINE 5% (700 MG) TRANSDERMAL ADH..PATCH TP ONE (08:24)
--- NOTE | 2016-10-18 09:15 | RADIOLOGY REPORT (SQ) ---
EXAM DESCRIPTION: KNEE RIGHT 3 VIEWS COMPLETED DATE/TIME: 10/18/2016 8:55 am REASON FOR STUDY: knee pain COMPARISON: None. NUMBER OF VIEWS: Three views. TECHNIQUE: AP, lateral, and sunrise patella radiographic images acquired of the right knee. LIMITATIONS: None. FINDINGS: MINERALIZATION: Normal. BONES: No acute fracture or dislocation. No worrisome bone lesions. JOINT: No significant suprapatellar knee joint effusion. There is very mild lateral subluxation of t he patella on the sunrise view. Mild lateral patellofemoral joint space narrowing. Mild medial comp artment joint space narrowing. SOFT TISSUES: No soft tissue swelling. No radio-opaque foreign body. OTHER: No other significant finding. IMPRESSION: No acute fracture. Joint space narrowing in the patellofemoral and medial compartments. TECHNICAL DOCUMENTATION: JOB ID: [id number] [email or web address]- All Rights Reserved
[2016-10-18] MEDS ORDERED: ACETAMINOPHEN 325 MG TABLET PO ONE (10:10)
--- NOTE | 2016-10-18 10:20 | ER Document Report ---
ED General - General Chief Complaint: Knee Injury Stated Complaint: RIGHT KNEE INJURY Time Seen by Provider: 10/18/16 08:16 TRAVEL OUTSIDE OF THE [place] IN LAST 30 DAYS: No - HPI Patient complains to provider of: Right knee pain Notes: Patient coming in for evaluation of right knee pain. Patient has right knee effusion in the medial side states ongoing for the last week worse in the last 2 days denies any other known injury patient denies fever chills nausea vomiting diarrhea - Related Data Allergies/Adverse Reactions: morphine [Morphine] Adverse Reaction (Verified 10/18/16 09:19) memory loss Past Medical History - Social History Smoking Status: Unknown if Ever Smoked Family History: Reviewed & Not Pertinent Patient has suicidal ideation: No Patient has homicidal ideation: No - Past Medical History Cardiac Medical History: Reports: Hx Hypertension Endocrine Medical History: Reports: Hx Diabetes Mellitus Type 1, Hx Diabetes Mellitus Type 2 Renal/ Medical History: Denies: Hx Peritoneal Dialysis GI Medical History: Reports: Hx Gastroesophageal Reflux Disease Psychiatric Medical History: Reports: Hx Bipolar Disorder, Hx Depression Past Surgical History: Reports: Hx Cholecystectomy, Hx Tonsillectomy, Hx Tubal Ligation - Immunizations Hx Diphtheria, Pertussis, Tetanus Vaccination: Yes Review of Systems - Review of Systems Constitutional: No symptoms reported EENT: No symptoms reported Cardiovascular: No symptoms reported Respiratory: No symptoms reported Gastrointestinal: No symptoms reported Genitourinary: No symptoms reported Female Genitourinary: No symptoms reported Musculoskeletal: Other - Right knee pain Skin: No symptoms reported Hematologic/Lymphatic: No symptoms reported Neurological/Psychological: No symptoms reported Physical Exam - Vital signs Vitals: Temp Pulse Resp BP Pulse Ox 97.7 F 84 16 139/86 H 94 10/18/16 07:27 10/18/16 07:27 10/18/16 07:27 10/18/16 07:27 10/18/16 07:27 Interpretation: Normal - General General appearance: Appears well, Alert - HEENT Head: Normocephalic, Atraumatic Eyes: Normal Pupils: PERRL - Respiratory Respiratory status: No respiratory distress Chest status: Nontender Breath sounds: Normal Chest palpation: Normal - Cardiovascular Rhythm: Regular Heart sounds: Normal auscultation Murmur: No - Abdominal Inspection: Normal Distension: No distension Bowel sounds: Normal Tenderness: Nontender Organomegaly: No organomegaly - Back Back: Normal, Nontender - Extremities General upper extremity: Normal inspection, Nontender, Normal color, Normal ROM , Normal temperature General lower extremity: Nontender, Tender, Normal color, Normal temperature, Normal weight bearing. No: Normal inspection - Effusion to the medial side of the right knee pain with passive and active range of motion at the knee patient states pain with anterior posterior valgus and varus stressing of the medial side of the knee., Ernesto's sign - Neurological Neuro grossly intact: Yes Cognition: Normal Orientation: AAOx4 [place] Coma Scale Eye Opening: Spontaneous [place] Coma Scale Verbal: Oriented Fidencio Coma Scale Motor: Obeys Commands Fidencio Coma Scale Total: 15 Speech: Normal Motor strength normal: LUE, RUE, LLE, RLE Sensory: Normal - Psychological Associated symptoms: Normal affect, Normal mood - Skin Skin Temperature: Warm Skin Moisture: Dry Skin Color: Normal Course - Re-evaluation Re-evalutation: 10/18/16 14:24 X-ray knee shows decreased space in the medial compartment of the knee otherwise no acute osseous injury patient will be placed in Wilder wrap patient has crutches at home patient will be discharged home - Vital Signs Vital signs: Temp Pulse Resp BP Pulse Ox 97.7 F 84 16 139/86 H 94 10/18/16 07:27 10/18/16 07:27 10/18/16 07:27 10/18/16 07:27 10/18/16 07:27 Discharge - Discharge Clinical Impression: Swelling of knee joint, right Right knee injury Qualifiers: Encounter type: initial encounter Qualified Code(s): S89.91XA - Unspecified injury of right lower leg, initial encounter Condition: Good Disposition: HOME, SELF-CARE Instructions: Wilder Wrap ([facility]), Use of Crutches ([facility]), Ice & Elevation ([facility]), Suspected Internal Knee Injury ([facility]), Oral Narcotic Medication ([facility]) Additional Instructions: Follow-up with your primary care physician. Return to the ER symptoms worsen. At this time your x-ray does not show any significant bony injury more likely some signs of ligamentous or cartilage damage that there is decreased joint space on the medial side. Further evaluation will need to be performed by her primary care physician or orthopedic doctor provided. Prescriptions: Naproxen [Naprosyn 250 mg Tablet] 250 mg PO DAILY PRN #30 tablet PRN Reason: Forms: Return to Work Referrals: JOHANNA BOSWELL MD [ACTIVE STAFF] - Follow up as needed
== END 2016-10-18 11:30 | disposition home or self-care (01) ==
LOC: ER 07:09
DX: S89.91XA Unspecified injury of right lower leg, initial encounter (principal); M79.89 Other specified soft tissue disorders; M25.561 Pain in right knee; M25.461 Effusion, right knee; X58.XXXA Exposure to other specified factors, initial encounter
CPT/HCPCS: 99283

== ENCOUNTER 2016-11-25 19:23 | Emergency (ER) | payer OTHER ==
[2016-11-25] MEDS ORDERED: METFORMIN HCL 500 MG TABLET PO ONE (20:18)
--- NOTE | 2016-11-25 20:20 | ER Document Report ---
ED Blood Sugar Problem - General Chief Complaint: High Blood Sugar Stated Complaint: BLOOD SUGAR PROBLEMS Time Seen by Provider: 11/25/16 19:54 Mode of Arrival: Ambulatory Information source: Patient TRAVEL OUTSIDE OF THE [place] IN LAST 30 DAYS: No - HPI Patient complains to provider of: High blood sugar Onset: This evening Quality of pain: No pain Similar symptoms previously: Yes Recently seen / treated by doctor: Yes Notes: Patient is a 36-year-old female with a history of diabetes who presents to the emergency room complaining of blood sugar measured at 425 at home, she was out shopping with her mother today, and for breakfast she had an Egg McMuffin, for lunch she had a big Mac with Ecuadorean fries, a Dr. Pepper and a pudding cup, and for dinner she had [place] fried chicken, patient denies any difficulty breathing, no nausea or vomiting, no fever or chills, no increased thirst or urination - Related Data Allergies/Adverse Reactions: morphine [Morphine] Adverse Reaction (Verified 11/25/16 19:38) memory loss Past Medical History - General Information source: Patient - Social History Smoking Status: Never Smoker Family History: Reviewed & Not Pertinent Patient has suicidal ideation: No Patient has homicidal ideation: No - Past Medical History Cardiac Medical History: Reports: Hx Hypertension Endocrine Medical History: Reports: Hx Diabetes Mellitus Type 1, Hx Diabetes Mellitus Type 2 Renal/ Medical History: Denies: Hx Peritoneal Dialysis GI Medical History: Reports: Hx Gastroesophageal Reflux Disease Psychiatric Medical History: Reports: Hx Bipolar Disorder, Hx Depression Past Surgical History: Reports: Hx Cholecystectomy, Hx Tonsillectomy, Hx Tubal Ligation - Immunizations Hx Diphtheria, Pertussis, Tetanus Vaccination: Yes Review of Systems - Review of Systems Constitutional: No symptoms reported EENT: No symptoms reported Cardiovascular: No symptoms reported Respiratory: No symptoms reported Gastrointestinal: No symptoms reported Genitourinary: No symptoms reported Female Genitourinary: No symptoms reported Musculoskeletal: No symptoms reported Skin: No symptoms reported Hematologic/Lymphatic: No symptoms reported Neurological/Psychological: No symptoms reported -: Yes All other systems reviewed and negative Physical Exam - Notes Notes: - General General appearance: Appears well, Alert In distress: None - HEENT Head: Normocephalic, Atraumatic Eyes: Normal Conjunctiva: Normal Extraocular movements intact: Yes Eyelashes: Normal Pupils: PERRL - Respiratory Respiratory status: No respiratory distress - Cardiovascular Rhythm: Regular - Abdominal Inspection: Normal, morbidly obese - Back Back: Normal - Extremities General upper extremity: Normal inspection General lower extremity: Normal inspection - Neurological Neuro grossly intact: Yes Orientation: AAOx4 Fidencio Coma Scale Eye Opening: Spontaneous Fidencio Coma Scale Verbal: Oriented Fidencio Coma Scale Motor: Obeys Commands Fidencio Coma Scale Total: 15 - Psychological Associated symptoms: Normal affect, Normal mood - Skin Skin Temperature: Warm Skin Moisture: Dry Skin Color: Normal Course - Re-evaluation Re-evalutation: 11/25/16 20:23 Patient with history of diabetes with elevated blood sugar after eating multiple carbohydrates throughout the day, I do long discussion with patient regarding her dietary choices and the long-term complications of uncontrolled diabetes, patient and spouse acknowledge that they have diabetic recipe books at home which they could be using to make better dietary choices, patient has no signs or symptoms of diabetic ketoacidosis or nonketotic hyperosmolar hyperglycemia, in fact sugar in the department is 328, she reports that she was recently told by a physician at [facility] to cut her Metformin down to 500 mg once a day, she was previously taking 1000 mg twice a day, patient was advised to start taking 500 mg twice a day and to follow-up with caring coming her neck, she does report having an appointment there on December 05 - Laboratory Laboratory results interpreted by me: 11/25/16 19:42 POC Glucose 338 H Discharge - Discharge Clinical Impression: Hyperglycemia Condition: Stable Disposition: HOME, SELF-CARE Instructions: Hyperglycemia ([facility]) Additional Instructions: Make dietary changes to cut out sugars and carbohydrates from your diet. Follow -up with your primary care provider in 1 week. Return to the emergency room immediately if symptoms worsen or any additional concerns. Prescriptions: Metformin HCl 500 mg PO BID #60 tablet
== END 2016-11-25 20:33 | disposition home or self-care (01) ==
LOC: ER 19:23
DX: E11.65 Type 2 diabetes mellitus with hyperglycemia (principal)
CPT/HCPCS: 82962; 99284

== ENCOUNTER 2016-12-14 16:58 | Emergency (ER) | payer OTHER ==
--- NOTE | 2016-12-14 18:15 | ER Document Report ---
ED Skin Rash/Insect Bite/Abscs - General Chief Complaint: Cyst Stated Complaint: LEG PAIN Time Seen by Provider: 12/14/16 17:51 Mode of Arrival: Ambulatory Information source: Patient Notes: 36-year-old female presents to ED for complaint of pain redness to her right thigh and groin area she states that a few days ago she noticed a small pimple. Site stated that she and her this morning pop the pimple and removed a small amount of yellow drainage this morning and since then the pain has increased to the red area of redness increased and the pain started radiating to her groin. TRAVEL OUTSIDE OF THE [place] IN LAST 30 DAYS: No - HPI Patient complains to provider of: Tender/swollen area Onset: Other - See above Onset/Duration: Gradual, Worse Quality of pain: Sharp Severity: Severe Pain Level: 5 Skin Character: Erythema, Tenderness, Thickening Skin Temperature: Warm Quality of rash: Painful Identify cause: Yes Exacerbated by: Movement, Walking Relieved by: Denies Similar symptoms previously: No Recently seen / treated by doctor: No - Related Data Allergies/Adverse Reactions: morphine [Morphine] Adverse Reaction (Verified 11/25/16 19:38) memory loss Past Medical History - General Information source: Patient - Social History Smoking Status: Never Smoker Cigarette use (# per day): No Chew tobacco use (# tins/day): No Smoking Education Provided: No Frequency of alcohol use: None Drug Abuse: None Lives with: Family Family History: Reviewed & Not Pertinent Patient has suicidal ideation: Yes - last week states hx bipolar Patient has homicidal ideation: No - Past Medical History Cardiac Medical History: Reports: Hx Hypertension Pulmonary Medical History: Reports: None EENT Medical History: Reports: None Neurological Medical History: Reports: None Endocrine Medical History: Reports: Hx Diabetes Mellitus Type 2 Renal/ Medical History: Reports: None Malignancy Medical History: Reports: None GI Medical History: Reports: Hx Gastroesophageal Reflux Disease Musculoskeltal Medical History: Reports None Skin Medical History: Reports None Psychiatric Medical History: Reports: Hx Bipolar Disorder, Hx Depression Traumatic Medical History: Reports: None Infectious Medical History: Reports: None Past Surgical History: Reports: Hx Cholecystectomy, Hx Tonsillectomy, Hx Tubal Ligation - Immunizations Immunizations up to date: Yes Hx Diphtheria, Pertussis, Tetanus Vaccination: Yes Review of Systems - Review of Systems Constitutional: No symptoms reported EENT: No symptoms reported Cardiovascular: No symptoms reported Respiratory: No symptoms reported Gastrointestinal: No symptoms reported Genitourinary: No symptoms reported Female Genitourinary: No symptoms reported Musculoskeletal: No symptoms reported Skin: Change in color, Other - pain in right upper thigh Hematologic/Lymphatic: No symptoms reported Neurological/Psychological: No symptoms reported -: Yes All other systems reviewed and negative Physical Exam - Vital signs Vitals: Temp Pulse Resp BP Pulse Ox 98.5 F 126 H 20 127/72 H 97 12/14/16 17:01 12/14/16 17:01 12/14/16 17:01 12/14/16 17:01 12/14/16 17:01 Interpretation: Normal - General General appearance: Appears well, Alert - HEENT Head: Normocephalic, Atraumatic Eyes: Normal Pupils: PERRL - Respiratory Respiratory status: No respiratory distress Chest status: Nontender Breath sounds: Normal Chest palpation: Normal - Cardiovascular Rhythm: Regular Heart sounds: Normal auscultation Murmur: No - Abdominal Inspection: Normal Distension: No distension Bowel sounds: Normal Tenderness: Nontender Organomegaly: No organomegaly - Back Back: Normal, Nontender - Extremities General upper extremity: Normal inspection, Nontender, Normal color, Normal ROM , Normal temperature General lower extremity: Normal inspection, Nontender, Normal color, Normal ROM , Normal temperature, Normal weight bearing. No: Ernesto's sign - Neurological Neuro grossly intact: Yes Cognition: Normal Orientation: AAOx4 [place] Coma Scale Eye Opening: Spontaneous Fidencio Coma Scale Verbal: Oriented [place] Coma Scale Motor: Obeys Commands Fidencio Coma Scale Total: 15 Speech: Normal Motor strength normal: LUE, RUE, LLE, RLE Sensory: Normal - Psychological Associated symptoms: Normal affect, Normal mood - Skin Skin Temperature: Warm Skin Moisture: Dry Skin Color: Normal Location of irregularity: Extremities - right upper thigh Irregularity with: Swelling, Tenderness, Warmth Course - Re-evaluation Re-evalutation: 12/14/16 20:56 Area of pain and tenderness was cleaned well with Betadine. Area was opened with a 18-gauge needle to ensure no abscess was present. Area was then covered with bacitracin and a sterile dressing. The area did not have any purulent drainage was just blood. Patient was treated with Keflex and Septra and discharged home to follow-up with her primary doctor. Patient was instructed to use Tylenol or Motrin for her pain and given instructions for cleaning area and using bacitracin and not Neosporin. Patient to follow-up with her primary doctor. - Vital Signs Vital signs: Temp Pulse Resp BP Pulse Ox 98.5 F 98 18 125/70 100 12/14/16 18:35 12/14/16 18:35 12/14/16 18:35 12/14/16 18:35 12/14/16 18:35 Discharge - Discharge Clinical Impression: Cellulitis of left thigh Condition: Stable Disposition: HOME, SELF-CARE Instructions: Family Physicians / Practices Additional Instructions: CELLULITIS: You have an infection of your skin and underlying soft tissues called cellulitis. This is due to bacteria, which can enter through any break in the skin, or even through an irritated hair follicle. Untreated, cellulitis will usually worsen. Antibiotics are required. Usually, warm packs or warm soaks, and elevation of the infected area are recommended. You should start getting better within 24 to 36 hours. Most infections respond quickly to the right medication. Follow-up care is important, however, to check for abscess (boil) formation, unsuspected foreign body, or resistant infection. If you develop fever, chills, or if the area of infection is becoming rapidly more swollen or painful, call the doctor at once. TRIMETHOPRIM-SULFA: You have been given a prescription for trimethoprim-sulfa (TMS, Septra, Bactrim). This is a combination antibiotic of the sulfa class, often used for urinary tract infections, middle ear infections, bronchitis, shigella intestinal infection, and Pneumocystis pneumonia. TMS is usually well-tolerated. Occasional side effects include nausea and decreased appetite. Septra is not recommended for infants less than two months of age. Do not take this medication if you have experienced severe side effects or allergy to sulfa medicine. You should stop this medicine at once and contact your physician if you develop any rash, joint pain, shortness of breath, bruising, or jaundice ( yellow color in the skin), or if you develop any other new or unusual symptoms. SOAP CLEANSING: Gently wash the wound daily using a mild soap (like Ivory, Phisoderm, Neutrogena). Use warm water, rubbing gently until all debris, ooze, and crusting have been washed from the wound. Allow to dry briefly (about 10 minutes) after cleaning. Repeat this cleansing at least three times a day for the first two days and then once or twice a day. ANTIBIOTIC OINTMENT PROTECTION: Your wounds are such that dressing them is not practical or optional. After cleansing, you should apply a thin coating of antibiotic ointment ( Bacitracin, not Neosporin) to the wounds at least three times daily. This lessens infection risk, and may decrease the amount of scarring. Use a q-tip or dull butter knife, not your finger, to apply this ointment. Any debris or ooze which builds up in the ointment should be gently rubbed off with a sterile gauze pad. Harder crusting may need to be gently scrubbed off with a clean wash cloth with soap and warm water, perhaps applying a warm, wet wash cloth to the wound for ten minutes first. Development of redness, severe itching, or blistering may mean allergy to the ointment. See the doctor. Cephalexin The antibiotic you've been prescribed is a member of the cephalosporin class. This type of antibiotic covers a wide variety of infections, including those of the skin, lungs, and urinary tract. It's useful for staph infections. This antibiotic is slightly similar to the penicillin family. In rare cases , a person who is allergic to penicillin will also be allergic to this medication. If you have had a severe allergic reaction to penicillin, and have not taken this antibiotic since that time, notify your doctor. Antibiotics which cover many germs ("broad spectrum" antibiotics) are more likely to cause diarrhea or "yeast" infections. Women prone to vaginal yeast problems may suffer an attack after taking this antibiotic. In infants, oral thrush (white spots "stuck" on the cheek) or yeast diaper rash may result. See your doctor if these problems occur. Call at once if you develop itching, hives , shortness of breath, or lightheadedness. FOLLOW-UP CARE: If you have been referred to a physician for follow-up care, call the physician s office for an appointment as you were instructed or within the next two days. If you experience worsening or a significant change in your symptoms, notify the physician immediately or return to the Emergency Department at any time for re-evaluation. Prescriptions: Cephalexin Monohydrate [Keflex 500 mg Capsule] 500 mg PO QID #20 capsule Sulfamethoxazole/Trimethoprim [Septra-Ds 800-160 mg Tablet] 1 tab PO BID #14 tablet Forms: Elevated Blood Pressure
[2016-12-14 18:38] VITALS: BP 125/70
== END 2016-12-14 18:35 | disposition home or self-care (01) ==
LOC: ER 16:58
DX: L03.116 Cellulitis of left lower limb (principal); I10 Essential (primary) hypertension; E11.9 Type 2 diabetes mellitus without complications; K21.9 Gastro-esophageal reflux disease without esophagitis; Z90.49 Acquired absence of other specified parts of digestive tract; Z98.51 Tubal ligation status; Z88.6 Allergy status to analgesic agent
CPT/HCPCS: 99283

== ENCOUNTER → 2017-10-10 | Outpatient (CLI) | payer OTHER ==
[2017-10-10 09:46] LABS: HEMATOCRIT 38.6 % (36.0-47.0); HEMOGLOBIN 13.2 g/dL (12.0-15.5); MEAN CORPUSCULAR HEMOGLOBIN 29.5 pg (27.0-33.4); MEAN CORPUSCULAR HGB CONC 34.2 g/dL (32.0-36.0); MEAN CORPUSCULAR VOLUME 87 fl (80-97); PLATELET COUNT 205 10^3/uL (150-450); RED BLOOD COUNT 4.46 10^6/uL (3.72-5.28); RED CELL DISTRIBUTION WIDTH 13.8 % (11.5-14.0); WHITE BLOOD COUNT 8.9 10^3/uL (4.0-10.5)
[2017-10-10 10:11] LABS: ALANINE AMINOTRANSFERASE 26 U/L (9-52); ALBUMIN 4.1 g/dL (3.5-5.0); ALKALINE PHOSPHATASE 85 U/L (38-126); ANION GAP 12 (5-19); ASPARTATE AMINO TRANSFERASE 26 U/L (14-36); BILIRUBIN,DIRECT 0.3 mg/dL (0.0-0.4); BILIRUBIN,TOTAL 0.3 mg/dL (0.2-1.3); BLOOD UREA NITROGEN 20 mg/dL (7-20); CALCIUM 9.6 mg/dL (8.4-10.2); CARBON DIOXIDE 24 mmol/L (22-30); CHLORIDE 106 mmol/L (98-107); CHOLESTEROL 169.67 mg/dL (0-200); GLUCOSE 97 mg/dL (75-110); POTASSIUM 4.7 mmol/L (3.6-5.0); SODIUM 142.1 mmol/L (137-145); TOTAL PROTEIN 7.4 g/dL (6.3-8.2); TRIGLYCERIDES 370 mg/dL (<150)
[2017-10-10 10:22] LABS: DIRECT LDL 74 mg/dL (<100)
== END ==
LOC: CCC 09:01
DX: Z00.00 Encounter for general adult medical examination without abnormal findings (principal)
CPT/HCPCS: 36415; 80053; 80061; 83036; 84443; 85027

== ENCOUNTER 2017-12-07 15:01 | Emergency (ER) | payer SELFPAY ==
[2017-12-07 16:14] LABS: APPEARANCE,URINE CLEAR; BILIRUBIN,URINE NEGATIVE (NEGATIVE); COLOR,URINE YELLOW; GLUCOSE, URINE NEGATIVE (NEGATIVE); KETONES,URINE NEGATIVE (NEGATIVE); LEUKOCYTE ESTERASE,URINE NEGATIVE (NEGATIVE); NITRITE,URINE NEGATIVE (NEGATIVE); PROTEIN,URINE NEGATIVE (NEGATIVE); URINE SPECIFIC GRAVITY 1.015; UROBILINOGEN,URINE NEGATIVE mg/dL (<2.0)
[2017-12-07 16:14] LABS: ABSOLUTE BASOPHILS # (AUTO) 0.1 10^3/uL (0.0-0.2); ABSOLUTE EOSINOPHILS # (AUTO) 0.4 10^3/uL (0.0-0.6); ABSOLUTE MONOCYTES (AUTO) 0.4 10^3/uL (0.1-1.4); ABSOLUTE NEUT (AUTO) 5.3 10^3/uL (1.7-8.2); BASOPHILS % (AUTO) 0.6 % (0-2); HEMATOCRIT 39.4 % (36.0-47.0); HEMOGLOBIN 13.7 g/dL (12.0-15.5); MEAN CORPUSCULAR HGB CONC 34.8 g/dL (32.0-36.0); MEAN CORPUSCULAR VOLUME 86 fl (80-97); MONOCYTES % (AUTO) 4.4 % (3-13); PLATELET COUNT 216 10^3/uL (150-450); RED BLOOD COUNT 4.57 10^6/uL (3.72-5.28); RED CELL DISTRIBUTION WIDTH 14.2 % (11.5-14.0); TOTAL CELLS COUNTED % (AUTO) 100 %; WHITE BLOOD COUNT 9.1 10^3/uL (4.0-10.5)
--- NOTE | 2017-12-07 16:20 | ER Document Report ---
ED General - General Chief Complaint: Psych Problem Stated Complaint: PSYCH EVAL Time Seen by Provider: 12/07/17 16:16 Information source: Patient Notes: 37-year-old female with past medical history of bipolar and borderline personality disorder as well as some insomnia who presents today stating she was awake all evening. Patient has a history of cutting. She states she started to have some thoughts of cutting this morning. She denies any and all suicidal ideations. Patient takes Invega, BuSpar, and Zoloft. No change in medications other than an increase in the Invega injection this past Saturday from 156 to 234. Patient was on a high dose of melatonin and was recently switched with her first dose of Belsomra yesterday. TRAVEL OUTSIDE OF THE [place] IN LAST 30 DAYS: No - HPI Onset: Other - See above Onset/Duration: Gradual Quality of pain: No pain Severity: Mild Pain Level: Denies Associated symptoms: Other Exacerbated by: Denies Relieved by: Denies Similar symptoms previously: No Recently seen / treated by doctor: No - Related Data Allergies/Adverse Reactions: morphine [Morphine] Adverse Reaction (Verified 12/22/16 17:02) memory loss Past Medical History - Social History Smoking Status: Current Every Day Smoker Frequency of alcohol use: Occasional Drug Abuse: None Family History: Reviewed & Not Pertinent Patient has suicidal ideation: No Patient has homicidal ideation: No - Past Medical History Cardiac Medical History: Reports: Hx Hypertension Endocrine Medical History: Reports: Hx Diabetes Mellitus Type 1, Hx Diabetes Mellitus Type 2 Renal/ Medical History: Denies: Hx Peritoneal Dialysis GI Medical History: Reports: Hx Gastroesophageal Reflux Disease Psychiatric Medical History: Reports: Hx Bipolar Disorder, Hx Depression Past Surgical History: Reports: Hx Cholecystectomy, Hx Tonsillectomy, Hx Tubal Ligation - Immunizations Immunizations up to date: Yes Hx Diphtheria, Pertussis, Tetanus Vaccination: Yes Hx Pneumococcal Vaccination: 11/28/16 Review of Systems - Review of Systems Constitutional: denies: Fever EENT: Nose congestion, Nose discharge. denies: Eye discharge Cardiovascular: denies: Chest pain, Palpitations Respiratory: denies: Short of breath Gastrointestinal: denies: Vomiting Genitourinary: denies: Dysuria Musculoskeletal: denies: Leg swelling Skin: Other - no hives. denies: Rash Neurological/Psychological: Other - no slurred speech -: Yes All other systems reviewed and negative Physical Exam - Vital signs Vitals: Temp Pulse Resp BP Pulse Ox 98.8 F 91 20 131/78 H 97 12/07/17 15:20 12/07/17 15:20 12/07/17 15:20 12/07/17 15:20 12/07/17 15:20 Notes: Reviewed vital signs and nursing note as charted by RN. CONSTITUTIONAL: Alert and oriented and responds appropriately to questions. Well -appearing; well-nourished HEAD: Normocephalic; atraumatic EYES: PERRL; full extraocular range of motion without nystagmus ENT: Normal nose; no rhinorrhea; moist mucous membranes; pharynx without lesions noted NECK: Supple without meningismus; non-tender; no cervical lymphadenopathy, no masses CARD: Regular rate and rhythm; no murmurs, no clicks, no rubs, no gallops; symmetric distal pulses RESP: Normal chest excursion without splinting or tachypnea; breath sounds clear and equal bilaterally ABD/GI: Normal bowel sounds; non-distended; soft, non-tender BACK: The back appears normal and is non-tender to palpation EXT: Normal ROM in all joints; non-tender to palpation; no cyanosis, no effusions, no edema SKIN: Normal color for age and race; warm; dry; good turgor; capillary refill < 2 seconds; no acute lesions noted NEURO: CN II through XII are intact. Moves all extremities equally; Motor and sensory function intact PSYCH: The patient's mood and manner are appropriate. Grooming and personal hygiene are appropriate. Course - Re-evaluation Re-evalutation: 12/07/17 16:19 Given the above history and physical examination, I will order basic laboratory profile to evaluate the patient's electrolytes. Patient denies any suicidal homicidal ideations. She denies any auditory or visual hallucinations. It is uncertain whether the increased insomnia secondary to the new medication of the increase in the in [place]. Patient states she will just stop the new medication and follow-up with her primary care physician and restart the melatonin. Patient still denies adamantly any suicidal ideations. She does feel better about the cutting. Mom is at bedside and feels very comfortable with the patient going home. 12/07/17 16:25 Heart rate 79, normal sinus rhythm, normal axis, no obvious ST elevation or depression 12/07/17 17:21 Patient continues to look and feel excellent. She would like to go home. I believe this is a reasonable option. Patient will be discharged home at this time with strict return precautions. - Vital Signs Vital signs: Temp Pulse Resp BP Pulse Ox 98.8 F 91 20 131/78 H 97 12/07/17 15:20 12/07/17 15:20 12/07/17 15:20 12/07/17 15:20 12/07/17 15:20 - Laboratory Result Diagrams: 12/07/17 15:54 12/07/17 15:54 Laboratory results interpreted by me: 12/07/17 12/07/17 15:54 15:54 RDW 14.2 H Glucose 132 H Salicylates < 1.0 L Acetaminophen < 10 L Discharge - Discharge Clinical Impression: Medication reaction Qualifiers: Encounter type: initial encounter Qualified Code(s): T50.905A - Adverse effect of unspecified drugs, medicaments and biological substances, initial encounter Insomnia Qualifiers: Insomnia type: unspecified Qualified Code(s): G47.00 - Insomnia, unspecified Condition: Good Disposition: HOME, SELF-CARE Additional Instructions: Come back immediately with any return of thoughts of injuring yourself, any suicidal ideations, auditory visual hallucinations, or any other acute problems. Please discontinue taking the new medication and please follow-up with your primary care physician as we have discussed.
--- NOTE | 2017-12-07 16:22 | PSYCHOLOGICAL NOTE ---
Psych Note - Psych Note Psych Note: Reason for consult: cutting Consent for permissions: Patient's mother at bed side, Lisandra Gonzalez, Pt presents to ED via EMS for c/o psych eval. Pt reports thoughts of cutting herself since last night after taking her new sleep medication - Belsomra ( Suvorexant). Pt states she saw her psychiatrist Saturday and was prescribed the medication which she took for the first time last night. Pt notes drinking some alcohol last night as well. Reports experiencing the opposite effect and was unable to sleep all last night and started with thoughts of wanted to cut herself. Pt reports a h/o these thoughts since she was 18 and states she typically gets a tattoo when these thoughts occur; reports 3 episodes of physically cutting herself in the past - last in 2008. Pt states she called the crisis center at [facility] who notified the police who then called EMS. denies any SI/HI at this time, denies any c/o of pain or anxiety. Patient states that she took her new sleep medication last night at 8:15pm and by 9:00pm she felt wide awake and could not go to sleep. Patient reports that eventually she feel asleep but then woke up and stayed awake. According to the patient, everything was fine until about noon today. She disclosed that "out of no where", she got the urge to cut herself. Immediately, patient went to the neighbor's house for cigarette. Patient states that even after having the cigarette, she still had the urge to cut herself so she called the crisis line for help. Patient states that her last time cutting herself was in 2008. Patient is currently seeing at Therapist at [facility] and her next appointment is January 06, 2018. Patient disclosed that she does not want to because she is "happy" but enjoys the "release of cutting". Patient says that her therapy appointments give her the same "release" feeling as the cutting. Patient is alert and oriented to person, place, time and circumstance. Mood is euthymic. Patient denies suicidal ideation. Patient has an organized and linear thought process. Eye Contact was well maintained. Conversational speech was within normal rate, tone, and prosody. Intellectual abilities appear to be within the average range. Attention and concentration are good. Insight, judgment, impulse control are good/ No medication recommendations at this time Diagnosis 300.02 (F41.1) Generalized Anxiety Disorder 301.83 (F60.3) Borderline Personality Disorder Impression/Plan: Patient is cleared from acute psychiatric services. Patient denies suicidal ideation with no intent, means or plans. Patient states that she has no intentions on killing herself, however, she enjoys the "release" that she feels when cutting herself. Patient demonstrated strong coping skills when she realized she had the cut herself by going to the neighbor's house and then calling the crisis line to ask for assistance. Patient actively engages in forward thinking and has an organized, linear thought process. Clinician brainstormed healthy coping skills in lieu of cutting with the patient. Dr. Herrera was consulted on the care and management of this patient; attending physician is in agreement with recommendations and disposition.
[2017-12-07 16:25] LABS: ALANINE AMINOTRANSFERASE 30 U/L (9-52); ALBUMIN 4.2 g/dL (3.5-5.0); ALKALINE PHOSPHATASE 79 U/L (38-126); ANION GAP 10 (5-19); ASPARTATE AMINO TRANSFERASE 26 U/L (14-36); BILIRUBIN,DIRECT 0.2 mg/dL (0.0-0.4); BILIRUBIN,TOTAL 0.5 mg/dL (0.2-1.3); BLOOD UREA NITROGEN 16 mg/dL (7-20); CALCIUM 10.1 mg/dL (8.4-10.2); CARBON DIOXIDE 23 mmol/L (22-30); CHLORIDE 107 mmol/L (98-107); GLUCOSE 132 mg/dL (75-110); POTASSIUM 3.8 mmol/L (3.6-5.0); SODIUM 140.1 mmol/L (137-145); TOTAL PROTEIN 7.6 g/dL (6.3-8.2)
[2017-12-07 16:27] LABS: ACETAMINOPHEN < 10 ug/mL (10-30); ALCOHOL < 10 mg/dL (NONE DETECTED); SALICYLATE < 1.0 mg/dL (2.0-20.0)
[2017-12-07 16:29] LABS: URINE AMPHETAMINES SCREEN NEGATIVE; URINE BARBITURATES SCREEN NEGATIVE; URINE BENZODIAZEPINES SCREEN NEGATIVE; URINE COCAINE SCREEN NEGATIVE; URINE MARIJUANA (THC) SCREEN NEGATIVE; URINE METHADONE SCREEN NEGATIVE; URINE PHENCYCLIDINE SCREEN NEGATIVE
[2017-12-07 17:34] VITALS: BP 129/90
--- NOTE | 2017-12-08 08:52 | EKG REPORT ---
SEVERITY:- NORMAL ECG - SINUS RHYTHM : Confirmed by: Catherine Hernandez MD 08-Dec-2017 08:51:49
== END 2017-12-07 17:34 | disposition home or self-care (01) ==
LOC: ER 15:01
DX: T50.905A Adverse effect of unspecified drugs, medicaments and biological substances, initial encounter (principal); G47.00 Insomnia, unspecified; F17.200 Nicotine dependence, unspecified, uncomplicated; X58.XXXA Exposure to other specified factors, initial encounter; F60.3 Borderline personality disorder; F41.1 Generalized anxiety disorder; I10 Essential (primary) hypertension; E11.9 Type 2 diabetes mellitus without complications; Z90.49 Acquired absence of other specified parts of digestive tract; Z98.51 Tubal ligation status; Z88.6 Allergy status to analgesic agent
CPT/HCPCS: 36415; 80053; 80307; 81001; 85025; 93005; 93010; 99285

== ENCOUNTER → 2018-03-13 | Outpatient (CLI) | payer OTHER | LOC: OD 12:32 | DX: Z00.00 Encounter for general adult medical examination without abnormal findings (principal) | CPT/HCPCS: 36415; 83001; 83002; 84146 ==

== ENCOUNTER → 2018-04-08 | Outpatient (CLI) | payer OTHER ==
--- NOTE | 2018-04-08 14:05 | RADIOLOGY REPORT (SQ) ---
EXAM DESCRIPTION: MRI HEAD COMBO COMPLETED DATE/TIME: 04/08/2018 1:29 pm REASON FOR STUDY: E22.1 HYPERPROLACTINEMIA E22.1 HYPERPROLACTINEMIA COMPARISON: None. TECHNIQUE: Multiplanar imaging includes non-contrasted T1, T2, FLAIR, diffusion with ADC map and pos t gadolinium contrast T1 sequences. Thin sections through the pituitary fossa pre and post contrast. Images stored on PACS. CONTRAST TYPE AND DOSE: 20 mL Dotarem. RENAL FUNCTION: GFR > 60. LIMITATIONS: None. FINDINGS: ANATOMY: No anomalies. Normal vascular flow voids. CSF SPACES: Normal in size and contour. No hemorrhage. PITUITARY FOSSA: No masses. No asymmetry. Infundibulum midline. CEREBRUM: Sulci and gyri normal in size and contour. Normal white matter signal on FLAIR imaging. No evidence of hemorrhage, mass, or extraaxial fluid collection. No abnormal enhancement post contrast. POSTERIOR FOSSA: No signal alteration. No hemorrhage. No edema, masses, or mass effect. Internal aud itory canals, cerebello-pontine angles, mastoids normal. No enhancing lesions. ORBITS: No masses. Globes normal. PARANASAL SINUSES: No fluid levels. Mucosa normal. OTHER: No other significant finding. IMPRESSION: NORMAL MRI OF THE BRAIN AND PITUITARY FOSSA. TECHNICAL DOCUMENTATION: JOB ID: [id number] [employer]- All Rights Reserved Reading location - IP/workstation name: [email or web address]
== END ==
LOC: RAD 13:27
DX: E22.1 Hyperprolactinemia (principal)
CPT/HCPCS: 82565; 70553; A9576

== ENCOUNTER 2018-07-29 14:19 | Emergency (ER) | payer OTHER ==
--- NOTE | 2018-07-29 15:10 | ER Document Report ---
ED Medical Screen (RME) - General Chief Complaint: Abdominal Pain Stated Complaint: STOMACHE PAIN Time Seen by Provider: 07/29/18 15:05 Primary Care Provider: [facility] [Primary Care Provider] - Follow up as needed Mode of Arrival: Ambulatory Information source: Patient Notes: Patient presents emergency department with complaints of left upper quad abd ominal pain that started at 1300 today,. Denies fever vomiting diarrhea. Denies chronic illnesses. Patient reports he felt a sharp stabbing pain 5 out of 5 and came to the emergency department. Denies pain with void. Male in the room with her reports that she has been nauseated after meals lately. I have greeted and performed a rapid initial assessment of this patient. A comprehensive ED assessment and evaluation of the patient, analysis of test results and completion of the medical decision making process will be conducted by additional ED providers. Dictation of this chart was performed using voice recognition software; therefore, there may be some unintended grammatical errors. TRAVEL OUTSIDE OF THE [place] IN LAST 30 DAYS: No - Related Data Allergies/Adverse Reactions: morphine [Morphine] Adverse Reaction (Verified 07/29/18 14:26) memory loss Past Medical History - Social History Frequency of alcohol use: Occasional Drug Abuse: None - Past Medical History Cardiac Medical History: Reports: Hx Hypertension Endocrine Medical History: Reports: Hx Diabetes Mellitus Type 1, Hx Diabetes Mellitus Type 2 Renal/ Medical History: Denies: Hx Peritoneal Dialysis GI Medical History: Reports: Hx Gastroesophageal Reflux Disease Psychiatric Medical History: Reports: Hx Bipolar Disorder, Hx Depression Past Surgical History: Reports: Hx Cholecystectomy, Hx Tonsillectomy, Hx Tubal Ligation - Immunizations Immunizations up to date: Yes Hx Diphtheria, Pertussis, Tetanus Vaccination: Yes History of Influenza Vaccine for 11/2016 - 04/2017 Season: Yes Influenza Administration Date for 11/2016 - 04/2017 Season: 12/10/16 Physical Exam - Vital signs Vitals: Temp Pulse Resp BP Pulse Ox 98.3 F 81 18 116/66 96 07/29/18 14:45 07/29/18 14:45 07/29/18 14:45 07/29/18 14:45 07/29/18 14:45 Course - Vital Signs Vital signs: Temp Pulse Resp BP Pulse Ox 98.3 F 81 18 116/66 96 07/29/18 14:45 07/29/18 14:45 07/29/18 14:45 07/29/18 14:45 07/29/18 14:45 Doctor's Discharge - Discharge [facility]errals: [facility] [Primary Care Provider] - Follow up as needed
[2018-07-29 15:40] LABS: ABSOLUTE BASOPHILS # (AUTO) 0.1 10^3/uL (0.0-0.2); ABSOLUTE EOSINOPHILS # (AUTO) 0.4 10^3/uL (0.0-0.6); ABSOLUTE LYMPHOCYTES (AUTO) 3.8 10^3/uL (0.5-4.7); ABSOLUTE MONOCYTES (AUTO) 0.6 10^3/uL (0.1-1.4); ABSOLUTE NEUT (AUTO) 5.9 10^3/uL (1.7-8.2); BASOPHILS % (AUTO) 0.8 % (0-2); EOSINOPHILS % (AUTO) 3.9 % (0-6); HEMATOCRIT 40.1 % (36.0-47.0); HEMOGLOBIN 13.9 g/dL (12.0-15.5); LYMPHOCYTES % (AUTO) 34.7 % (13-45); MEAN CORPUSCULAR HEMOGLOBIN 29.3 pg (27.0-33.4); MEAN CORPUSCULAR HGB CONC 34.8 g/dL (32.0-36.0); MEAN CORPUSCULAR VOLUME 84 fl (80-97); MONOCYTES % (AUTO) 5.9 % (3-13); PLATELET COUNT 242 10^3/uL (150-450); RED BLOOD COUNT 4.76 10^6/uL (3.72-5.28); RED CELL DISTRIBUTION WIDTH 13.7 % (11.5-14.0); SEGMENTED NEUTROPHILS % (AUTO) 54.7 % (42-78); TOTAL CELLS COUNTED % (AUTO) 100 %; WHITE BLOOD COUNT 10.9 10^3/uL (4.0-10.5)
[2018-07-29 15:44] LABS: APPEARANCE,URINE CLEAR; BILIRUBIN,URINE NEGATIVE (NEGATIVE); COLOR,URINE YELLOW; GLUCOSE, URINE NEGATIVE (NEGATIVE); KETONES,URINE NEGATIVE (NEGATIVE); LEUKOCYTE ESTERASE,URINE NEGATIVE (NEGATIVE); NITRITE,URINE NEGATIVE (NEGATIVE); PROTEIN,URINE NEGATIVE (NEGATIVE); URINE SPECIFIC GRAVITY 1.015; UROBILINOGEN,URINE NEGATIVE mg/dL (<2.0)
[2018-07-29 15:58] LABS: ALANINE AMINOTRANSFERASE 21 U/L (9-52); ALBUMIN 4.3 g/dL (3.5-5.0); ALKALINE PHOSPHATASE 86 U/L (38-126); ANION GAP 7 (5-19); ASPARTATE AMINO TRANSFERASE 24 U/L (14-36); BILIRUBIN,DIRECT 0.2 mg/dL (0.0-0.4); BILIRUBIN,TOTAL 0.3 mg/dL (0.2-1.3); BLOOD UREA NITROGEN 19 mg/dL (7-20); CALCIUM 9.9 mg/dL (8.4-10.2); CARBON DIOXIDE 25 mmol/L (22-30); CHLORIDE 107 mmol/L (98-107); GLUCOSE 87 mg/dL (75-110); POTASSIUM 4.1 mmol/L (3.6-5.0); SODIUM 139.4 mmol/L (137-145); TOTAL PROTEIN 7.2 g/dL (6.3-8.2)
[2018-07-29] MEDS ORDERED: ACETAMINOPHEN 325 MG TABLET PO ONE (16:18)
[2018-07-29] MEDS ORDERED: ONDANSETRON 4 MG TAB.RAPDIS PO ONE (16:18)
--- NOTE | 2018-07-29 16:24 | ER Document Report ---
ED GI/ - General Chief Complaint: Abdominal Pain Stated Complaint: STOMACHE PAIN Time Seen by Provider: 07/29/18 15:05 Primary Care Provider: [facility] [Primary Care Provider] - Follow up as needed Mode of Arrival: Ambulatory Information source: Patient Notes: 37-year-old female presented to ED for complaint of left upper quadrant abdominal pain that started about 1:00 this afternoon. She states that as she was in the emergency room the pain is now shifted to across the upper abdomen to left and right. She states she had a normal bowel movement this morning she had some nausea but no vomiting's. She denies any fever or diarrhea. She states she has not had any trouble voiding. States that she does frequently have a nausea after a meal lately. He had lab work while she was in the pit area drawn. Lab work is all negative. TRAVEL OUTSIDE OF THE [place] IN LAST 30 DAYS: No - HPI Patient complains to provider of: Abdominal pain, Other - States she does have nausea frequently after meals. No: Vomiting Onset: This afternoon Timing/Duration: Intermittent Quality of pain: Sharp Severity at maximum: Severe Severity in ED: Moderate Pain Level: 3 Location: LUQ, RUQ Associated symptoms: Nausea. denies: Constipation, Diarrhea, Dizzy, Dysuria, Fever, Hard stool, Painful intercourse, Radiates to back, Radiates to chest, Radiates to vagina, Radiates to shoulder, Urinary hesitancy, Urinary frequency, Urinary retention, Urinary urgency, Vaginal discharge, Vomiting Exacerbated by: Movement Relieved by: Denies Similar symptoms previously: Yes Recently seen / treated by doctor: No - Related Data Allergies/Adverse Reactions: morphine [Morphine] Adverse Reaction (Verified 07/29/18 14:26) memory loss Past Medical History - General Information source: Patient - Social History Smoking Status: Current Every Day Smoker Cigarette use (# per day): Yes - Pack per day Chew tobacco use (# tins/day): No Smoking Education Provided: Yes - 4 minutes Frequency of alcohol use: Occasional Drug Abuse: None Occupation: Housekeeping Lives with: Family Family History: Reviewed & Not Pertinent Patient has suicidal ideation: No Patient has homicidal ideation: No - Past Medical History Cardiac Medical History: Reports: Hx Hypertension Pulmonary Medical History: Reports: None EENT Medical History: Reports: None Neurological Medical History: Reports: None Endocrine Medical History: Reports: Hx Diabetes Mellitus Type 2 Renal/ Medical History: Reports: None Malignancy Medical History: Reports: None GI Medical History: Reports: Hx Gastroesophageal Reflux Disease Musculoskeletal Medical History: Reports Hx Musculoskeletal Trauma Skin Medical History: Reports None Psychiatric Medical History: Reports: Hx Bipolar Disorder, Hx Depression, Other - Psychosomatic syndrome Traumatic Medical History: Reports: Hx Fractures - Left ulnar and multiple fingers Infectious Medical History: Reports: None Past Surgical History: Reports: Hx Adenoidectomy, Hx Cholecystectomy, Hx Tonsillectomy, Hx Tubal Ligation - Immunizations Immunizations up to date: Yes Hx Diphtheria, Pertussis, Tetanus Vaccination: Yes Hx Pneumococcal Vaccination: 11/28/16 Review of Systems - Review of Systems Constitutional: No symptoms reported EENT: No symptoms reported Cardiovascular: No symptoms reported Respiratory: No symptoms reported Gastrointestinal: Abdominal pain - Upper abdomen, Nausea. denies: Vomiting Genitourinary: No symptoms reported Female Genitourinary: No symptoms reported Musculoskeletal: No symptoms reported Skin: No symptoms reported Hematologic/Lymphatic: No symptoms reported Neurological/Psychological: No symptoms reported -: Yes All other systems reviewed and negative Physical Exam - Vital signs Vitals: Temp Pulse Resp BP Pulse Ox 98.3 F 81 18 116/66 96 07/29/18 14:45 07/29/18 14:45 07/29/18 14:45 07/29/18 14:45 07/29/18 14:45 Interpretation: Normal - General General appearance: Appears well, Alert - HEENT Head: Normocephalic, Atraumatic Eyes: Normal Pupils: PERRL - Respiratory Respiratory status: No respiratory distress Chest status: Nontender Breath sounds: Normal Chest palpation: Normal - Cardiovascular Rhythm: Regular Heart sounds: Normal auscultation Murmur: No - Abdominal Inspection: Normal Distension: No distension Bowel sounds: Normal Tenderness: Tender - Upper abdomen bilateral. No: McBurney's point, Ortega's sign, Guarding, Rebound, Other Organomegaly: No organomegaly - Back Back: Normal, Nontender - Extremities General upper extremity: Normal inspection, Nontender, Normal color, Normal ROM, Normal temperature General lower extremity: Normal inspection, Nontender, Normal color, Normal ROM, Normal temperature, Normal weight bearing. No: Ernesto's sign - Neurological Neuro grossly intact: Yes Cognition: Normal Orientation: AAOx4 [place] Coma Scale Eye Opening: Spontaneous Fidencio Coma Scale Verbal: Oriented [place] Coma Scale Motor: Obeys Commands [place] Coma Scale Total: 15 Speech: Normal Motor strength normal: LUE, RUE, LLE, RLE Sensory: Normal - Psychological Associated symptoms: Normal affect, Normal mood - Skin Skin Temperature: Warm Skin Moisture: Dry Skin Color: Normal Course - Re-evaluation Re-evalutation: 07/29/18 17:22 Discussed labs and x-rays with patient and written report of labs and x-rays given to patient. Patient was instructed to follow-up with her primary care doctor if. There are no acute abnormalities noted. Patient will be discharged home. She states she has nausea medicine at home. - Vital Signs Vital signs: Temp Pulse Resp BP Pulse Ox 97.8 F 69 16 124/76 96 07/29/18 17:33 07/29/18 17:33 07/29/18 17:33 07/29/18 17:33 07/29/18 17:33 - Laboratory Result Diagrams: 07/29/18 15:10 07/29/18 15:10 Laboratory results interpreted by me: 07/29/18 15:10 WBC 10.9 H - Diagnostic Test Radiology reviewed: Image reviewed, Reports reviewed Discharge - Discharge Clinical Impression: Abdominal pain Qualifiers: Abdominal location: upper abdomen, unspecified Qualified Code(s): R10.10 - Upper abdominal pain, unspecified Condition: Stable Disposition: HOME, SELF-CARE Additional Instructions: ABDOMINAL PAIN: There are many causes of abdominal pain. Pain can mean a serious problem requiring surgery (such as appendicitis). It can also be an innocent problem that goes away on its own (such as a viral infection). Often, time must pass to determine the cause of pain. The physician does not feel that hospitalization is necessary, at present. Things may change within the next 24 hours. Call the doctor or come back for re- examination if any problems occur, such as: (1) Pain that becomes more severe, steady, or becomes concentrated in one specific area. Also, pain that is more severe with movement or coughing. (2) Vomiting that persists or becomes more frequent. (3) Blood in the vomitus, urine, or bowel movements. Blood in the stool may have a tarry or black appearance. (4) Shaking chills or fever greater than 100 degrees F. (5) The abdomen becomes more distended or swollen. (6) Bowel movements cease. (7) Failure to improve as expected. Ibuprofen Ibuprofen is an excellent, safe drug for pain control. In addition, it has potent antiinflammatory effects which are beneficial, especially in the treatment of injuries, arthritis, or tendonitis. It's best to take ibuprofen with food. Persons with ulcer disease or allergy to aspirin should notify their physician of this before taking ibuprofen. Take the medication exactly as prescribed. Don't take additional doses unless instructed to do so by your doctor. If you develop wheezing, shortness of breath, hives, faintness, stomach pain, vomiting, or dark black stools, return for re-evaluation at once. Acetaminophen Acetaminophen may be taken for pain relief or fever control. It's much safer than aspirin, offering a wider range of "safe" dosages. It is safe during . Some brand names are Tylenol, Panadol, Datril, Anacin 3, Tempra, and Liquiprin. Acetaminophen can be repeated every four hours. The following are maximum recommended dosages: WEIGHT Dose Drops Elixir Chewable(80mg) (LBS.) drprs=droppers tsp=teaspoon 6 40 mg .4 ml (1/2) 6-11 80 mg .8 ml (full) 1/2 tsp 1 tab 12-16 120 mg 1 1/2 drprs 3/4 tsp 1 1/2 tabs 17-23 160 mg 2 drprs 1 tsp 2 tabs 24-30 240 mg 3 drprs 1 1/2 tsp 3 tabs 30-35 320 mg 2 tsp 4 tabs 36-41 360 mg 2 1/4 tsp 4 1/2 tabs 42-47 400 mg 2 1/2 tsp 5 tabs 48-53 480 mg 3 tsp 6 tabs 54-59 520 mg 3 1/4 tsp 6 1/2 tabs 60-64 560 mg 3 1/2 tsp 7 tabs 65-70 600 mg 3 3/4 tsp 7 1/2 tabs 71-76 640 mg 4 tsp 8 tabs 77-82 720 mg 4 1/2 tsp 9 tabs 83-88 800 mg 5 tsp 10 tabs >89 pounds or adults 650 mg to 900 mg Acetaminophen can be repeated every four hours. Maximum daily dose not to exceed 4000 mg. These maximum recommended dosages are slightly higher than the dosages written on the product container, but these dosages are very safe and well below the toxic dosage for acetaminophen. NORMAL EXAM AND WORKUP: At this time, your examination and workup show no significant abnormality. No significant abnormal physical findings are noted. All laboratory, EKG, and imaging (x-ray, CT scans, ultrasound) studies that were ordered show no significant abnormality. Although your examination and all studies that were ordered showed no significant abnormal finding, there are no examinations and no studies that are 100% accurate. There is always the possibility that some abnormality could exist and not be detected with physical examination or within the limits and capabilities of laboratory and other studies. You should return or follow up as you were instructed on your visit today for further evaluation if your symptoms do not resolve. FOLLOW-UP CARE: If you have been referred to a physician for follow-up care, call the physicians office for an appointment as you were instructed or within the next two days. If you experience worsening or a significant change in your symptoms, notify the physician immediately or return to the Emergency Department at any time for re-evaluation. Forms: Smoking Cessation Education, Return to Work Referrals: [facility] [Primary Care Provider] - Follow up as needed
--- NOTE | 2018-07-29 16:55 | RADIOLOGY REPORT (SQ) ---
EXAM DESCRIPTION: ACUTE ABDOMEN SERIES COMPLETED DATE/TIME: 07/29/2018 4:46 pm REASON FOR STUDY: abdominal pain COMPARISON: 12/22/2016. NUMBER OF VIEWS: Three views. TECHNIQUE: Frontal chest, supine abdomen and upright/decubitus abdomen radiographic images acquired. LIMITATIONS: None. FINDINGS: CHEST: Lungs clear of infiltrates. FREE AIR: None. No abnormal gas collections. BOWEL GAS PATTERN: Nonobstructive pattern. No dilated loops or air fluid levels. CALCIFICATIONS: No suspicious calcifications. HARDWARE: Surgical clips in the right upper quadrant. SOFT TISSUES: No gross mass or suggestion of organomegaly. BONES: No acute fracture. No worrisome bone lesions. OTHER: No other significant finding. IMPRESSION: NO RADIOGRAPHIC EVIDENCE FOR ACUTE ABDOMINAL DISEASE. TECHNICAL DOCUMENTATION: JOB ID: [id number] [employer]- All Rights Reserved Reading location - IP/workstation name: [email or web address]
[2018-07-29 17:35] VITALS: BP 124/76
== END 2018-07-29 17:37 | disposition home or self-care (01) ==
LOC: ER 14:19
DX: R10.2 Pelvic and perineal pain (principal); Z88.6 Allergy status to analgesic agent; F17.210 Nicotine dependence, cigarettes, uncomplicated; R11.0 Nausea; I10 Essential (primary) hypertension; E11.9 Type 2 diabetes mellitus without complications; Z90.49 Acquired absence of other specified parts of digestive tract
CPT/HCPCS: 99284; 36415; 85025; 81025; 80053; 81001; 74022; S0119

== ENCOUNTER → 2018-09-24 | Outpatient (CLI) | payer OTHER ==
[2018-09-24 10:55] LABS: ABSOLUTE EOSINOPHILS # (AUTO) 0.2 10^3/uL (0.0-0.6); ABSOLUTE LYMPHOCYTES (AUTO) 2.9 10^3/uL (0.5-4.7); ABSOLUTE MONOCYTES (AUTO) 0.4 10^3/uL (0.1-1.4); ABSOLUTE NEUT (AUTO) 4.4 10^3/uL (1.7-8.2); BASOPHILS % (AUTO) 0.6 % (0-2); EOSINOPHILS % (AUTO) 2.5 % (0-6); HEMATOCRIT 38.2 % (36.0-47.0); LYMPHOCYTES % (AUTO) 36.5 % (13-45); MEAN CORPUSCULAR HEMOGLOBIN 28.8 pg (27.0-33.4); MEAN CORPUSCULAR VOLUME 85 fl (80-97); PLATELET COUNT 208 10^3/uL (150-450); RED BLOOD COUNT 4.51 10^6/uL (3.72-5.28); RED CELL DISTRIBUTION WIDTH 14.4 % (11.5-14.0); SEGMENTED NEUTROPHILS % (AUTO) 55.4 % (42-78); TOTAL CELLS COUNTED % (AUTO) 100 %; WHITE BLOOD COUNT 7.9 10^3/uL (4.0-10.5)
[2018-09-24 11:11] LABS: ALANINE AMINOTRANSFERASE 23 U/L (9-52); ALBUMIN 4.3 g/dL (3.5-5.0); ALKALINE PHOSPHATASE 51 U/L (38-126); ANION GAP 9 (5-19); ASPARTATE AMINO TRANSFERASE 27 U/L (14-36); BILIRUBIN,DIRECT 0.3 mg/dL (0.0-0.4); BILIRUBIN,TOTAL 0.7 mg/dL (0.2-1.3); BLOOD UREA NITROGEN 18 mg/dL (7-20); CALCIUM 9.7 mg/dL (8.4-10.2); CARBON DIOXIDE 27 mmol/L (22-30); CHLORIDE 104 mmol/L (98-107); CHOLESTEROL 159.87 mg/dL (0-200); GLUCOSE 85 mg/dL (75-110); POTASSIUM 4.1 mmol/L (3.6-5.0); TOTAL PROTEIN 7.4 g/dL (6.3-8.2); TRIGLYCERIDES 161 mg/dL (<150)
[2018-09-24 11:22] LABS: DIRECT LDL 101 mg/dL (<100)
[2018-09-24 11:27] LABS: VLDL CHOLESTEROL 32.2 mg/dL (10-31)
== END ==
LOC: CCC 10:02
DX: Z00.00 Encounter for general adult medical examination without abnormal findings (principal)
CPT/HCPCS: 36415; 80053; 80061; 83036; 84443; 85025

== ENCOUNTER 2019-08-26 18:20 | Emergency (ER) | payer SELFPAY ==
[2019-08-26] MEDS ORDERED: ONDANSETRON HCL INJ/PF 4 MG/2 ML SDV IV ONE (19:50)
[2019-08-26] MEDS ORDERED: RINGERS SOLUTION,LACTATED 1,000 ML IV ONE (19:50)
--- NOTE | 2019-08-26 19:52 | ER Document Report ---
ED Medical Screen (RME) - General Chief Complaint: Abdominal Pain Stated Complaint: ABDOMINAL PAIN,BLOOD IN STOOL Time Seen by Provider: 08/26/19 19:45 [facility]: [facility] [Primary Care Provider] - Follow up as needed Mode of Arrival: Ambulatory Information source: Patient Notes: HPI; 38-year-old female presents to the emergency room with sudden onset of sharp cramping mid epigastric pain that started earlier today after eating. Complains of nausea but no vomiting. States she had 2 episodes of diarrhea with blood. States there was blood mixed in with the stool. Denies any recent antibiotics. No urinary symptoms. No fevers. No recent travel. No COVID-19 exposure. PE: Alert and oriented x3. Mild distress noted. Lungs: Clear to auscultation without rales rhonchi wheezes. Heart: Regular rate rhythm without murmurs, rubs, gallops. Abdomen is soft nondistended nontender. Unable to do full abdominal exam in triage I have greeted and performed a rapid initial assessment of this patient. A comprehensive ED assessment and evaluation of the patient, analysis of test results and completion of the medical decision making process will be conducted by additional ED providers. I have specifically instructed the patient or family members with the patient to immediately return to any nursing staff should anything change in the patient's condition or with their chief complaint. TRAVEL OUTSIDE OF THE [place] IN LAST 30 DAYS: No - Related Data Allergies/Adverse Reactions: morphine [Morphine] Adverse Reaction (Verified 07/29/18 14:26) memory loss Past Medical History - Past Medical History Cardiac Medical History: Reports: Hx Hypertension Endocrine Medical History: Reports: Hx Diabetes Mellitus Type 1, Hx Diabetes Mellitus Type 2 Renal/ Medical History: Denies: Hx Peritoneal Dialysis GI Medical History: Reports: Hx Gastroesophageal Reflux Disease Musculoskeltal Medical History: Reports Hx Musculoskeletal Trauma Psychiatric Medical History: Reports: Hx Bipolar Disorder, Hx Depression Traumatic Medical History: Reports: Hx Fractures - Left ulnar and multiple fingers Past Surgical History: Reports: Hx Adenoidectomy, Hx Cholecystectomy, Hx Tonsillectomy, Hx Tubal Ligation - Immunizations Immunizations up to date: Yes Hx Diphtheria, Pertussis, Tetanus Vaccination: Yes Physical Exam - Vital signs Vitals: Temp Pulse Resp BP Pulse Ox 97.5 F 75 18 145/82 H 97 08/26/19 19:43 08/26/19 19:43 08/26/19 19:43 08/26/19 19:43 08/26/19 19:43 Course - Vital Signs Vital signs: Temp Pulse Resp BP Pulse Ox 97.5 F 75 18 145/82 H 97 08/26/19 19:43 08/26/19 19:43 08/26/19 19:43 08/26/19 19:43 08/26/19 19:43 Doctor's Discharge - Discharge Referrals: [facility] [Primary Care Provider] - Follow up as needed
[2019-08-26 21:05] LABS: ABSOLUTE EOSINOPHILS # (AUTO) 0.1 10^3/uL (0.0-0.6); ABSOLUTE LYMPHOCYTES (AUTO) 3.2 10^3/uL (0.5-4.7); ABSOLUTE MONOCYTES (AUTO) 0.5 10^3/uL (0.1-1.4); ABSOLUTE NEUT (AUTO) 3.9 10^3/uL (1.7-8.2); BASOPHILS % (AUTO) 0.5 % (0-2); EOSINOPHILS % (AUTO) 1.6 % (0-6); HEMATOCRIT 37.4 % (36.0-47.0); HEMOGLOBIN 12.2 g/dL (12.0-15.5); LYMPHOCYTES % (AUTO) 40.8 % (13-45); MEAN CORPUSCULAR HEMOGLOBIN 25.8 pg (27.0-33.4); MEAN CORPUSCULAR HGB CONC 32.5 g/dL (32.0-36.0); MEAN CORPUSCULAR VOLUME 79 fl (80-97); MONOCYTES % (AUTO) 6.8 % (3-13); PLATELET COUNT 264 10^3/uL (150-450); RED BLOOD COUNT 4.71 10^6/uL (3.72-5.28); RED CELL DISTRIBUTION WIDTH 15.4 % (11.5-14.0); SEGMENTED NEUTROPHILS % (AUTO) 50.3 % (42-78); TOTAL CELLS COUNTED % (AUTO) 100 %; WHITE BLOOD COUNT 7.8 10^3/uL (4.0-10.5)
[2019-08-26 21:18] LABS: ALBUMIN 4.2 g/dL (3.5-5.0); ALKALINE PHOSPHATASE 72 U/L (38-126); ANION GAP 7 (5-19); ASPARTATE AMINO TRANSFERASE 38 U/L (14-36); BILIRUBIN,TOTAL 0.4 mg/dL (0.2-1.3); BLOOD UREA NITROGEN 18 mg/dL (7-20); CALCIUM 10.1 mg/dL (8.4-10.2); CARBON DIOXIDE 25 mmol/L (22-30); CHLORIDE 104 mmol/L (98-107); GLUCOSE 126 mg/dL (75-110); POTASSIUM 4.6 mmol/L (3.6-5.0); TOTAL PROTEIN 7.4 g/dL (6.3-8.2)
--- NOTE | 2019-08-26 22:10 | RADIOLOGY REPORT (SQ) ---
CLINICAL INDICATION: EPIGASTRIC pain bright red blood mixed with bowel movement. . TECHNIQUE: Contrast enhanced spiral axial CT imaging was obtained of the abdomen and pelvis with multiplanar reconstructions. This exam was performed according to our departmental dose-optimization program, which includes automated exposure control, adjustment of the mA and/or kV according to patient size and/or use of iterative reconstruction techniques. COMPARISON: None. CORRELATION: None. FINDINGS: Abdomen: The lung bases are grossly clear. The heart is of normal size. No evidence of pleural or pericardial fluid. The liver is fatty infiltrated. The gallbladder is surgically absent. The pancreas is unremarkable. The spleen is unremarkable. The adrenals are unremarkable. The kidneys appear grossly normal without evidence of urolithiasis or hydronephrosis. There is no evidence of free air. No free fluid. No bulky adenopathy. Abdominal aorta is nonaneurysmal. Pelvis: The bowel is nonobstructed. The bowel is unopacified with oral contrast. Pelvic contents are unremarkable. The appendix is not seen. Presumed stool dependently within the rectum Visualized bones are within normal limits, for age. IMPRESSION: No acute intra-abdominal process is identified. The cause of the patient's presenting symptoms is not identified on this examination..
[2019-08-26 22:11] LABS: APPEARANCE,URINE CLEAR; BILIRUBIN,URINE NEGATIVE (NEGATIVE); COLOR,URINE YELLOW; GLUCOSE, URINE >=500 mg/dL (NEGATIVE); KETONES,URINE NEGATIVE (NEGATIVE); LEUKOCYTE ESTERASE,URINE SMALL (NEGATIVE); NITRITE,URINE NEGATIVE (NEGATIVE); PROTEIN,URINE NEGATIVE (NEGATIVE); URINE SPECIFIC GRAVITY 1.021; UROBILINOGEN,URINE NEGATIVE mg/dL (<2.0)
--- NOTE | 2019-08-27 02:44 | ER Document Report ---
ED General - General Chief Complaint: Epigastric Pain Stated Complaint: ABDOMINAL PAIN,BLOOD IN STOOL Time Seen by Provider: 08/26/19 19:45 Primary Care Provider: [facility] [NO LOCAL MD] - Follow up as needed Mode of Arrival: Ambulatory Notes: 38-year-old female presents emergency department stating that she felt generally unwell when she woke up this morning and then developed epigastric abdominal pain around noon that worsened when she ate corn chowder. She then developed 2 episodes of diarrhea with streaks/puddles of blood. States that it was quite painful and it happened twice. She states she has had bright red blood per rectum previously but is never been this much. States that happened around 1230 or 1 PM. States she took Pepto-Bismol after each episode and has not had a bowel movement since around 2 PM. Denies any vomiting, denies any continuing abdominal pain. TRAVEL OUTSIDE OF THE [place] IN LAST 30 DAYS: No - Related Data Allergies/Adverse Reactions: morphine [Morphine] Adverse Reaction (Verified 07/29/18 14:26) memory loss Home Medications: synjardy, prilosec, liothyronine, levothyroxine, lisinopril, fexofenadine, melatonin, valerian, invega Past Medical History - General Information source: Patient - Social History Smoking Status: Never Smoker Chew tobacco use (# tins/day): No Frequency of alcohol use: Rare Drug Abuse: None Family History: Reviewed & Not Pertinent - Past Medical History Cardiac Medical History: Reports: Hx Hypertension Endocrine Medical History: Reports: Hx Diabetes Mellitus Type 1, Hx Diabetes Mellitus Type 2 Renal/ Medical History: Denies: Hx Peritoneal Dialysis GI Medical History: Reports: Hx Gastroesophageal Reflux Disease Musculoskeletal Medical History: Reports Hx Musculoskeletal Trauma Psychiatric Medical History: Reports: Hx Bipolar Disorder, Hx Depression Traumatic Medical History: Reports: Hx Fractures - Left ulnar and multiple fingers Past Surgical History: Reports: Hx Adenoidectomy, Hx Cholecystectomy, Hx Tonsillectomy, Hx Tubal Ligation - Immunizations Immunizations up to date: Yes Hx Diphtheria, Pertussis, Tetanus Vaccination: Yes Hx Pneumococcal Vaccination: 11/28/16 Review of Systems - Review of Systems Constitutional: See HPI, Malaise. denies: Chills, Diaphoresis, Weakness EENT: No symptoms reported Cardiovascular: No symptoms reported Respiratory: No symptoms reported Gastrointestinal: See HPI, Abdominal pain, Diarrhea, Blood streaked bowels. denies: Nausea, Vomiting, Constipation -: Yes All other systems reviewed and negative Physical Exam - Vital signs Vitals: Temp Pulse Resp BP Pulse Ox 97.5 F 75 18 145/82 H 97 08/26/19 19:43 08/26/19 19:43 08/26/19 19:43 08/26/19 19:43 08/26/19 19:43 Interpretation: Hypertensive - Notes Notes: GENERAL: Alert, interacts well. No acute distress. HEAD: Normocephalic, atraumatic EYES: Pupils equal, round and reactive to light, extraocular movements intact. ENT: Oral mucosa moist, tongue midline. NECK: Full range of motion, supple, trachea midline. LUNGS: Clear to auscultation bilaterally, no wheezes, rales or rhonchi, no respiratory distress. HEART: Regular rate and rhythm, no murmurs, gallops, rubs. ABDOMEN: Soft, nontender, nondistended, bowel sounds present in all 4 quadrants. RECTAL: Sphincter tone, no hemorrhoids, no blood, soft brown stool. Heme- negative. EXTREMITIES: Moves all 4 extremities spontaneously, no edema, radial and dorsalis pedis pulses 2/4 bilaterally. No cyanosis. NEUROLOGICAL: Alert and oriented x3, normal speech, biceps and patellar DTRs 2+ bilaterally. PSYCH: Normal mood, normal affect. SKIN: Warm, Dry, normal turgor, no rashes or lesions noted. Course - Re-evaluation Re-evalutation: 08/27/19 03:27 Initial CBC unremarkable without any anemia, repeat CBC shows slight decrease in hemoglobin over the course of 6 hours from 12.2 down to 11.7, this is not enough to need to be admitted, CMP grossly unremarkable, lipase is normal, urinalysis shows large blood and small leukocyte esterase, 6 squamous epithelial cells. This will be sent for culture. Suspect it is contamination. Abdomen/Pelvis CT 08/26/19 19:50 IMPRESSION: No acute intra-abdominal process is identified. The cause of the patient's presenting symptoms is not identified on this examination.. 08/27/19 03:31 Currently the patient has not had any further bowel movements in over 12 hours, she is not having a significant anemia, she does not have evidence of pancr eatitis, there is no evidence of intra-abdominal infection. Discussed with patient the need to return if she has further blood in her stool, also discussed taking daily antacid for the epigastric pain. Return for fevers, worsening pain or any new or concerning symptoms. - Vital Signs Vital signs: Temp Pulse Resp BP Pulse Ox 97.5 F 75 18 145/82 H 97 08/26/19 19:46 08/26/19 19:43 08/26/19 19:43 08/26/19 19:43 08/26/19 19:43 - Laboratory Result Diagrams: 08/27/19 02:38 08/26/19 20:45 Laboratory results interpreted by me: 08/26/19 08/26/19 08/26/19 20:45 20:45 21:30 Hgb Hct MCV 79 L MCH 25.8 L RDW 15.4 H Sodium 136.2 L Glucose 126 H POC Glucose AST 38 H Urine Glucose (UA) >=500 H Urine Blood LARGE H Ur Leukocyte Esterase SMALL H 08/27/19 08/27/19 01:46 02:38 Hgb 11.7 L Hct 35.1 L MCV 79 L MCH 26.3 L RDW 15.6 H Sodium Glucose POC Glucose 115 H AST Urine Glucose (UA) Urine Blood Ur Leukocyte Esterase Discharge - Discharge Clinical Impression: Rectal bleeding, Epigastric abdominal pain Diarrhea Qualifiers: Diarrhea type: unspecified type Qualified Code(s): R19.7 - Diarrhea, unsp ecified Condition: Stable Disposition: HOME, SELF-CARE Additional Instructions: Today you do not have any evidence of life-threatening blood loss. There is no sign of infection in your abdomen. The Pepto-Bismol that she took earlier will likely cause you to have black stools. If this lasts for more than 2 days or if you have more than a small amount of blood in your stool please return to the emergency department. Please take [id number] antacid of your choice such as Pepcid 20 mg twice a day or Zantac. Please return to the emergency department for any new or concerning symptoms including a fever. Referrals: [facility] [NO LOCAL MD] - Follow up as needed
[2019-08-27 02:51] LABS: HEMATOCRIT 35.1 % (36.0-47.0); HEMOGLOBIN 11.7 g/dL (12.0-15.5); MEAN CORPUSCULAR HEMOGLOBIN 26.3 pg (27.0-33.4); MEAN CORPUSCULAR HGB CONC 33.2 g/dL (32.0-36.0); MEAN CORPUSCULAR VOLUME 79 fl (80-97); PLATELET COUNT 226 10^3/uL (150-450); RED BLOOD COUNT 4.44 10^6/uL (3.72-5.28); RED CELL DISTRIBUTION WIDTH 15.6 % (11.5-14.0); WHITE BLOOD COUNT 6.8 10^3/uL (4.0-10.5)
[2019-08-27 04:04] VITALS: BP 107/71
== END 2019-08-27 04:07 | disposition home or self-care (01) ==
LOC: ER 18:20
DX: K62.5 Hemorrhage of anus and rectum (principal); R10.13 Epigastric pain; R19.7 Diarrhea, unspecified; I10 Essential (primary) hypertension; E11.9 Type 2 diabetes mellitus without complications; Z88.6 Allergy status to analgesic agent; Z90.49 Acquired absence of other specified parts of digestive tract; Z98.51 Tubal ligation status
CPT/HCPCS: 99284; 96361; 96374; 36415; 87086; 82962; 83690; 85025; 85027; 81025; 87088; 80053; 81001; 74177; J2405; J7120

== ENCOUNTER → 2019-11-05 | Outpatient (CLI) | payer OTHER ==
--- NOTE | 2019-11-05 10:04 | RADIOLOGY REPORT (SQ) ---
EXAM DESCRIPTION: MRI HEAD WITHOUT IMAGES COMPLETED DATE/TIME: 11/05/2019 8:57 am REASON FOR STUDY: PSEUDOTUMOR CEREBRI G93.2 BENIGN INTRACRANIAL HYPERTENSION COMPARISON: None. TECHNIQUE: Multiplanar imaging includes non-contrasted T1, T2, FLAIR, and diffusion with ADC map seq uences. Images stored on PACS. LIMITATIONS: None. FINDINGS: ANATOMY: No anomalies. Normal vascular flow voids. Pituitary fossa normal. CSF SPACES: Normal in size and contour. No hemorrhage. CEREBRUM: Sulci and gyri normal in size and contour. Normal white matter signal on FLAIR imaging. No evidence of hemorrhage, mass, or extraaxial fluid collection. POSTERIOR FOSSA: No signal alteration. No hemorrhage. No edema, masses or mass effect. Internal mary tory canals, cerebello-pontine angles, mastoids normal. DIFFUSION IMAGING: Negative for acute or sub-acute infarction. ORBITS: No masses. Globes normal. PARANASAL SINUSES: No fluid levels. Mucosa normal. OTHER: No other significant finding. IMPRESSION: Normal brain. EVIDENCE OF ACUTE STROKE: NO. TECHNICAL DOCUMENTATION: JOB ID: [id number] 2010 [facility]- All Rights Reserved Reading location - IP/workstation name: [email or web address]
== END ==
LOC: RAD 07:37
PROVIDERS: ATTEND Nurse Practitioner Primary Care
DX: G93.2 Benign intracranial hypertension (principal)
CPT/HCPCS: 70551

== ENCOUNTER 2020-02-21 10:30 | Emergency (ER) | payer OTHER ==
--- NOTE | 2020-02-21 12:07 | ER Document Report ---
ED Medical Screen (RME) - General Chief Complaint: Breast Problem Stated Complaint: BREAST PAIN Time Seen by Provider: 02/21/20 12:02 Primary Care Provider: CONNER STEINBERG FNP-C [Primary Care Provider] - Follow up as needed Mode of Arrival: Ambulatory Information source: Patient Notes: 39-year-old female presented to ED for complaint of breast tenderness bilateral with some discharge when she squeezes the breast. She has no redness no inflammation no tenderness last menstrual period was in December. I have ordered blood and urine and she will be seen by another provider. States she does not smoke she is a former smoker quit more than a year ago she does drink occasionally and no drugs. She does have a history of high blood pressure and hypothyroid. I have greeted and performed a rapid initial assessment of this patient. A comprehensive ED assessment and evaluation of the patient, analysis of test results and completion of medical decision making process will be conducted by an additional ED providers. TRAVEL OUTSIDE OF THE [place] IN LAST 30 DAYS: No - Related Data Allergies/Adverse Reactions: morphine [Morphine] Adverse Reaction (Verified 02/21/20 12:02) memory loss Past Medical History - Social History Chew tobacco use (# tins/day): No Frequency of alcohol use: Occasional Drug Abuse: None - Past Medical History Cardiac Medical History: Reports: Hx Hypertension Endocrine Medical History: Reports: Hx Diabetes Mellitus Type 1, Hx Diabetes Mellitus Type 2 Renal/ Medical History: Denies: Hx Peritoneal Dialysis GI Medical History: Reports: Hx Gastroesophageal Reflux Disease Musculoskeltal Medical History: Reports Hx Musculoskeletal Trauma Psychiatric Medical History: Reports: Hx Bipolar Disorder, Hx Depression Traumatic Medical History: Reports: Hx Fractures - Left ulnar and multiple fingers Past Surgical History: Reports: Hx Adenoidectomy, Hx Cholecystectomy, Hx Tonsillectomy, Hx Tubal Ligation - Immunizations Immunizations up to date: Yes Hx Diphtheria, Pertussis, Tetanus Vaccination: Yes Physical Exam - Vital signs Vitals: Temp Pulse Resp BP Pulse Ox 97.8 F 58 L 20 126/73 H 98 02/21/20 10:40 02/21/20 10:40 02/21/20 10:40 02/21/20 10:40 02/21/20 10:40 Course - Vital Signs Vital signs: Temp Pulse Resp BP Pulse Ox 97.8 F 58 L 20 126/73 H 98 02/21/20 10:40 02/21/20 10:40 02/21/20 10:40 02/21/20 10:40 02/21/20 10:40 Doctor's Discharge - Discharge Referrals: CONNER STEINBERG [facility] [Primary Care Provider] - Follow up as needed
[2020-02-21 12:50] LABS: APPEARANCE,URINE CLEAR; BILIRUBIN,URINE NEGATIVE (NEGATIVE); COLOR,URINE STRAW; GLUCOSE, URINE >=500 mg/dL (NEGATIVE); KETONES,URINE NEGATIVE (NEGATIVE); LEUKOCYTE ESTERASE,URINE NEGATIVE (NEGATIVE); NITRITE,URINE NEGATIVE (NEGATIVE); PROTEIN,URINE NEGATIVE (NEGATIVE); URINE SPECIFIC GRAVITY 1.005; UROBILINOGEN,URINE NEGATIVE mg/dL (<2.0)
[2020-02-21 12:51] LABS: ABSOLUTE EOSINOPHILS # (AUTO) 0.1 10^3/uL (0.0-0.6); ABSOLUTE LYMPHOCYTES (AUTO) 2.4 10^3/uL (0.5-4.7); ABSOLUTE MONOCYTES (AUTO) 0.4 10^3/uL (0.1-1.4); ABSOLUTE NEUT (AUTO) 3.4 10^3/uL (1.7-8.2); BASOPHILS % (AUTO) 0.6 % (0-2); EOSINOPHILS % (AUTO) 2.2 % (0-6); HEMATOCRIT 36.8 % (36.0-47.0); MEAN CORPUSCULAR HEMOGLOBIN 25.2 pg (27.0-33.4); MEAN CORPUSCULAR HGB CONC 32.6 g/dL (32.0-36.0); MEAN CORPUSCULAR VOLUME 77 fl (80-97); MONOCYTES % (AUTO) 6.5 % (3-13); PLATELET COUNT 225 10^3/uL (150-450); RED BLOOD COUNT 4.75 10^6/uL (3.72-5.28); RED CELL DISTRIBUTION WIDTH 16.5 % (11.5-14.0); SEGMENTED NEUTROPHILS % (AUTO) 53.7 % (42-78); TOTAL CELLS COUNTED % (AUTO) 100 %; WHITE BLOOD COUNT 6.4 10^3/uL (4.0-10.5)
[2020-02-21 12:59] LABS: ALBUMIN 3.9 g/dL (3.5-5.0); ALKALINE PHOSPHATASE 61 U/L (38-126); ASPARTATE AMINO TRANSFERASE 39 U/L (14-36); BILIRUBIN,DIRECT 0.1 mg/dL (0.0-0.4); BILIRUBIN,TOTAL 0.5 mg/dL (0.2-1.3); BLOOD UREA NITROGEN 16 mg/dL (7-20); CALCIUM 9.6 mg/dL (8.4-10.2); GLUCOSE 85 mg/dL (75-110); POTASSIUM 4.6 mmol/L (3.6-5.0); TOTAL PROTEIN 6.9 g/dL (6.3-8.2)
[2020-02-21 13:04] LABS: ANION GAP 5 (5-19); CARBON DIOXIDE 29 mmol/L (22-30); CHLORIDE 102 mmol/L (98-107)
[2020-02-21] MEDS ORDERED: IBUPROFEN 800 MG TABLET PO ONE (16:28)
--- NOTE | 2020-02-21 16:28 | ER Document Report ---
Entered by TASHA ARIAS SCRIBE 02/21/20 1516 Acting as scribe for:ROBERT SCALES MD ED Breast Problem - General Chief Complaint: Breast Problem Stated Complaint: BREAST PAIN Time Seen by Provider: 02/21/20 12:02 Primary Care Provider: CONNER STEINBERG FNP-C [Primary Care Provider] - Follow up as needed Mode of Arrival: Ambulatory Information source: Patient Notes: This 39 year old female patient presents to the ED today with complaints of bilateral breast pain that started around 1600 yesterday afternoon. Patient states that the pain has become worse since onset and ranges from throbbing to stabbing. Denies similar symptoms in the past. Denies injury or trauma. She notes taking Tylenol without relief. She discloses a history of bipolar disorder and states that her medication was changed from Invega to Caplyta x2 months ago and that Invega causes . She is unsure if she is . TRAVEL OUTSIDE OF THE [place] IN LAST 30 DAYS: No - Related Data Allergies/Adverse Reactions: morphine [Morphine] Adverse Reaction (Verified 02/21/20 12:02) memory loss Past Medical History - General Information source: Patient, [facility] Records - Social History Smoking Status: Former Smoker Cigarette use (# per day): No Chew tobacco use (# tins/day): No Smoking Education Provided: No Frequency of alcohol use: Occasional Drug Abuse: None Family History: Reviewed & Not Pertinent - Past Medical History Cardiac Medical History: Reports: Hx Hypertension Endocrine Medical History: Reports: Hx Diabetes Mellitus Type 2 GI Medical History: Reports: Hx Gastroesophageal Reflux Disease Musculoskeletal Medical History: Reports Hx Musculoskeletal Trauma Psychiatric Medical History: Reports: Hx Bipolar Disorder, Hx Depression Traumatic Medical History: Reports: Hx Fractures - Left ulnar and multiple fingers Past Surgical History: Reports: Hx Adenoidectomy, Hx Cholecystectomy, Hx Tonsillectomy, Hx Tubal Ligation - Immunizations Immunizations up to date: Yes Hx Diphtheria, Pertussis, Tetanus Vaccination: Yes Hx Pneumococcal Vaccination: 11/28/16 Review of Systems - Review of Systems Constitutional: No symptoms reported EENT: No symptoms reported Cardiovascular: No symptoms reported Respiratory: No symptoms reported Gastrointestinal: No symptoms reported Genitourinary: No symptoms reported Female Genitourinary: No symptoms reported Musculoskeletal: See HPI Skin: See HPI Hematologic/Lymphatic: No symptoms reported Neurological/Psychological: No symptoms reported -: Yes All other systems reviewed and negative Physical Exam - Vital signs Vitals: Temp Pulse Resp BP Pulse Ox 97.8 F 58 L 20 126/73 H 98 02/21/20 10:40 02/21/20 10:40 02/21/20 10:40 02/21/20 10:40 02/21/20 10:40 Interpretation: Normal - General General appearance: Alert In distress: None - HEENT Head: Normocephalic, Atraumatic Eyes: Normal Pupils: PERRL - Respiratory Respiratory status: No respiratory distress Chest status: Nontender Breath sounds: Normal Chest palpation: Normal - Cardiovascular Rhythm: Regular Heart sounds: Normal auscultation Murmur: No Friction rub: No Gallop: None auscultated - Abdominal Inspection: Normal Distension: No distension Bowel sounds: Normal Tenderness: Nontender - Abdomen soft Organomegaly: No organomegaly - Back Back: Normal, Nontender - Extremities General upper extremity: Normal inspection General lower extremity: Normal inspection. No: Edema - Neurological Neuro grossly intact: Yes Orientation: AAOx4 [place] Coma Scale Eye Opening: Spontaneous [place] Coma Scale Verbal: Oriented Fidencio Coma Scale Motor: Obeys Commands [place] Coma Scale Total: 15 - Psychological Associated symptoms: Normal affect, Normal mood - Skin Skin Temperature: Warm Skin Moisture: Dry Skin Color: Normal Notes: Fibrocystic dense tissue appreciated in breasts bilaterally, mostly in the medial quadrant at the 3 o'clock position. Female wind science and planning and patient's were present for exam. Course - Re-evaluation Re-evalutation: 02/21/20 19:12 Patient resting comfortably no signs of distress. - Vital Signs Vital signs: Temp Pulse Resp BP Pulse Ox 97.8 F 58 L 20 126/73 H 98 02/21/20 10:40 02/21/20 10:40 02/21/20 10:40 02/21/20 10:40 02/21/20 10:40 02/21/20 19:13 Vital signs stable pulse 58 blood pressure 126/73. - Laboratory Results Result Diagrams: 02/21/20 12:25 02/21/20 12:25 Laboratory Results Interpreted: 02/21/20 02/21/20 02/21/20 12:25 12:25 12:25 MCV 77 L MCH 25.2 L RDW 16.5 H Sodium 136.0 L AST 39 H ALT 39 H Urine Glucose (UA) >=500 H Critical Laboratory Results Reviewed: No Critical Results - Radiology Results Critical Radiology Results Reviewed: No Critical Results Discharge - Discharge Clinical Impression: Fibrocystic breast disease, Bipolar disorder, Pain of both breasts Condition: Stable Disposition: HOME, SELF-CARE Additional Instructions: Breast Fibrocystic Disease You have a breast lump or cyst, which we think is most likely due to fibrocystic disease. This is very common in women and is usually a benign condition. These breast masses form under the influence of female hormones (estrogen and progesterone). They occur most often in the upper, outer portion of the breast. Fibrocystic lumps can become more painful and tender just before your period. Most breast lumps and cysts are benign. But we want to be certain. Suspicious lumps may need a biopsy or needle aspiration. More innocent-seeming lumps may be evaluated with mammography or ultrasound. Be sure to see your doctor for follow-up care. See the doctor or return here if you develop nipple discharge or bleeding, severe pain, tenderness, redness in your breast. I recommend that you follow-up with your primary care provider and to be scheduled to have mammograms. I will be writing a prescription for 800 mg ibuprofen to be taken if needed 3 times a day for breast pain. Prescriptions: Ibuprofen [Ibu] 800 mg PO TID PRN 7 Days #21 tablet PRN Reason: prn pain/swelling/fever Referrals: CONNER STEINBERG FNP-C [Primary Care Provider] - Follow up as needed I personally performed the services described in the documentation, reviewed and edited the documentation which was dictated to the scribe in my presence, and it accurately records my words and actions.
[2020-02-21 16:38] VITALS: BP 112/51
== END 2020-02-21 16:38 | disposition home or self-care (01) ==
LOC: ER 10:30
DX: N60.12 Diffuse cystic mastopathy of left breast (principal); N60.11 Diffuse cystic mastopathy of right breast; N64.4 Mastodynia; F31.9 Bipolar disorder, unspecified; Z79.899 Other long term (current) drug therapy; Z88.8 Allergy status to other drugs, medicaments and biological substances; Z87.891 Personal history of nicotine dependence; I10 Essential (primary) hypertension; E11.9 Type 2 diabetes mellitus without complications
CPT/HCPCS: 36415; 80053; 81001; 84702; 85025; 87086; 99283